=== PATIENT | female | born 1945 | race Caucasian/White ===

== ENCOUNTER → 2019-07-02 09:00 | Outpatient (CLI) | payer MEDICARE, OTHER, SELFPAY | PROVIDERS: Visit Provider Nurse Practitioner Family | DX: Z00.00 Encounter for general adult medical examination without abnormal findings (principal) | CPT/HCPCS: 36415; 82955; 83880; 84436; 84443; 84480 ==

== ENCOUNTER → 2019-07-03 10:47 | Outpatient (CLI) | payer MEDICARE, OTHER, SELFPAY ==
[2019-07-03 12:21] LABS: BNP,B-Type NATRIURETIC PEPTIDE 150.6 pg/mL (0-100)
[2019-07-03 12:24] LABS: T3 Total - Triiodothyronine 1.18 ng/mL (0.6-1.81)
[2019-07-03 12:25] LABS: T4 Total, Thyroxin 9.7 ug/dL (4.8-13.9); Thyroid Stim Hormone (TSH) 2.02 uIU/mL (0.358-3.74)
[2019-07-05 16:07] LABS: Red Blood Cell Count Test/G6PD 4.53 x10E6/uL (3.77-5.28)
[2019-07-06 13:58] LABS: G6PD Quant Test 280 (146-376)
== END ==
PROVIDERS: PCP Nurse Practitioner Family; Visit Provider Nurse Practitioner Family
DX: R53.82 Chronic fatigue, unspecified (principal); M62.81 Muscle weakness (generalized); R68.82 Decreased libido; E66.9 Obesity, unspecified
CPT/HCPCS: 36415; 82955; 83880; 84436; 84443; 84480

== ENCOUNTER 2021-09-19 10:12 | Outpatient (CLI) | payer MEDICARE, OTHER, SELFPAY ==
[2021-09-19 12:42] LABS: Absolute Lymphocyte Count 1.46 X10^3/uL (0.83-4.51); Absolute Neutrophil Count 5.6 X10^3/uL (2.0-7.7); Basophil# 0.04 X10^3/uL; Basophil% 0.5 % (0-1); Eosinophil# 0.09 X10^3/uL; Eosinophils% 1.2 % (0-5); Hematocrit 43.5 % (37-47); Lymphocyte # 1.46 X10^3/ul (0.83-4.51); Mean Corp Hgb Conc 32.2 g/dL (32-36); Mean Corpuscular Hgb 30.5 pg (27.0-32.0); Mean Corpuscular Volume 94.8 fL (81-99); Monocyte# 0.52 X10^3/uL; Monocyte% 6.8 % (0-10); NRBC Flagged by Analyzer 0 % (0-5); Neutrophil # 5.57 X10^3/uL (2.7-7.7); Neutrophil % 72.4 % (47-70); Platelet Count 412 K/mm3 (150-450); RBC Distribution Width CV 13.6 % (11.6-14.6); RBC Distribution Width SD 47.5 fl (35.1-43.9); Red Blood Count 4.59 M/mm3 (4.2-5.4); White Blood Count 7.7 K/mm3 (4.4-11.0)
[2021-09-19 12:44] LABS: Color, Urine Yellow (Yellow); Glucose, Dipstick Normal (Normal); Ketone-Dipstick 5 mg/dl (Negative); Leukocyte Esterase-Dipstick 25 /ul (Negative); Nitrite-Dipstick Positive (Negative); Occult Blood-Urine 25 /ul (Negative); Protein-Dipstick Negative (Negative); Urine Bilirubin Dipstick Negative (Negative); Urine Clarity Sl. Cloudy (Clear); Urine Urobilinogen Normal (Normal)
[2021-09-19 12:56] LABS: ALB/GLOB Ratio 0.8 RATIO (0.9-2.4); AST(SGOT) 19 U/L (15-37); Alanine Aminotransfer ALT/SGPT 14 U/L (13-56); Albumin, Serum 3.1 g/dL (3.2-5.0); Alkaline Phosphatase 98 U/L (45-117); Anion Gap 7 (5-15); BUN 21 mg/dL (7-18); BUN/Creat Ratio 35.8 RATIO (10-20); Calcium,Total 8.8 mg/dL (8.5-10.1); Chloride 109 mmol/L (98-107); Cholesterol 171 mg/dL (200); Creatinine, Serum 0.59 mg/dL (0.55-1.02); EST Glomerular Filtration Rate 105 mL/min (>60); Est Glom Filt Rate - Afr Amer 127 mL/min (>60); Globulin 3.7 g/dL (2.2-4.2); Glucose 91 mg/dL (74-106); High Density Lipoprotein 42 mg/dL; Potassium 4.4 mmol/L (3.5-5.1); Protein, Total 6.8 g/dL (6.4-8.2); Sodium Level 142 mmol/L (136-145); Triglycerides 71 mg/dL; Very Low Density Lipoprotein 14 mg/dL (5-40)
[2021-09-20 15:07] LABS: Red Blood Cell Count Test/G6PD 4.73 x10E6/uL (3.77-5.28)
[2021-09-22 14:22] LABS: G6PD Quant Test 365 (127-427)
== END 2021-09-19 23:59 | disposition home or self-care (01) ==
PROVIDERS: PCP Nurse Practitioner Family; Referring Provider Nurse Practitioner Family; Visit Provider Nurse Practitioner Family
DX: R53.82 Chronic fatigue, unspecified (principal); M62.81 Muscle weakness (generalized)
CPT/HCPCS: 36415; 80053; 80061; 81002; 82955; 83880; 85025

== ENCOUNTER → 2022-04-04 | Outpatient (CLI) | payer MEDICARE, OTHER, SELFPAY ==
--- NOTE | 2022-04-04 08:27 | BI_ITS ---
MAMMOGRAPHY - BILATERAL SCREENING REASON FOR EXAM: Female, 77 years old. Routine annual screening examination. PERTINENT HISTORY: Personal history of breast cancer. Prior right lumpectomy. Sister with breast cancer. Mother with breast cancer. Aunt with breast cancer. TECHNIQUE: Digital bilateral breast apollo (3D mammographic acquisition) in the CC and MLO projections. 2-D mediolateral oblique (MLO) and craniocaudad (CC) views of both breasts were obtained. CAD: Full Field Digital Mammography with Computer Added Detection was performed. COMPARISON: Comparison is made with prior abdomen examination dated 03/21/2021. FINDINGS: Breast Composition: The breasts are heterogeneously dense, which may obscure small masses. There are no dominant masses or suspicious calcifications. The patient is status post lumpectomy in the right breast with surgical clips seen in the right axillary region. No other significant abnormalities are identified. There has been no significant change since the prior study. BI/SCRN MAMM (CAD)W/APOLLO BILAT IMPRESSION: Stable bilateral screening mammogram. Yearly follow-up mammogram recommended. (A) ASSESSMENT CATEGORY: BIRADS Category 2: Benign. A letter regarding these results will be sent to the patient by the facility within 30 days. Approximately 10% of breast cancers are not detected by mammography. A normal mammogram should not delay biopsy of a clinically suspicious abnormality. [id number] Electronically Signed: aJck Rodriguez MD at 12:26 EST ,
== END | disposition home or self-care (01) ==
LOC: OPBI 08:26
PROVIDERS: Referring Provider Registered Nurse; Visit Provider Registered Nurse
DX: Z12.31 Encounter for screening mammogram for malignant neoplasm of breast (principal); Z80.3 Family history of malignant neoplasm of breast
CPT/HCPCS: 77063; 77067

== ENCOUNTER 2022-05-22 08:39 | Day surgery (SDC) | payer MEDICARE, OTHER, SELFPAY ==
--- NOTE | 2022-05-22 08:50 | HP.PCM_ITS ---
HPI - General General Date of Admission: 05/22/22 HPI Narrative JELANI SEARS, is a 77 F who presents for colonoscopy and an EGD. Patient denies any abdominal pain nausea vomiting or reflux. Patient has a bowel movements daily denies any blood. from office visit 04/03/22 HPI: 77-year-old female presents due to history of colon polyps for colonoscopy.? Patient states her last colonoscopy was about 5 to 6 years ago in [place], she did have a polyp at that time.? Patient denies any immediate family history of colon cancer however all of her paternal uncles and aunts did have colon cancer.? Patient has bowel movements daily denies any blood.? Patient denies any abdominal pain.? Patient states she also previously had an EGD about 5 to 6 years ago states she was told she did not have celiac disease thyroid time for that she was told she did.? Patient has been avoiding gluten as she is unable to tolerate it and patient is also lactose intolerant. [facility] Medical History (Updated 05/18/22 @ 13:29 by Oneyda Reza) History of celiac disease Hx of colonic polyps Non-smoker Wears glasses Home Medications cholecalciferol (vitamin D3) 100 mcg (4,000 unit) tablet 100 mcg PO DAILY 04/03/22 [History Last Taken Unknown] calcium carbonate 500 mg calcium (1,250 mg) chewable tablet (Calcium 500) 500 mg PO DAILY 04/13/22 [History Last Taken Unknown] clobetasol 0.05 % topical ointment 1 applic topical .COMPLEX #15 grams 04/13/22 [Rx Last Taken Unknown] ascorbic acid (vitamin C) 1,000 mg capsule,extended release 1 cap PO DAILY 05/18/22 [History Last Taken Unknown] Allergy/AdvReac Type Severity Reaction Status Date / Time No Known Allergies Allergy Unverified 05/22/22 09:19 Family History Mother Breast cancer Sister Breast cancer Brother Heart disease Hypertension Surgical History (Updated 05/18/22 @ 13:29 by Oneyda Reza) H/O breast biopsy H/O lumpectomy H/O: hysterectomy Hx of colonoscopy Hx of esophagogastroduodenoscopy Hx of lumbar discectomy Social History housing: house current occupational status: retired Smoking Status: Never smoker alcohol intake: never substance use type: does not use seatbelt use: always do you feel safe at home: Yes additional social history: Past Medical/Surgical History Planned Operation Planned Operative Procedure/s: EGD/CSCOPE Previous Hospitalizations/Surgeries HX Hospitalizations: No Any Problems With Anesthesia: No You/Your Family Experience Fever (Hyperthermia) With Anes: No Cholinesterase deficiency: No Cardiovascular Hx Hypertension: No Respiratory Hx Sleep Apnea: No Hx Respiratory Tract Infection/Cold (presently): No Do You Snore Loudly (louder than talking or can be heard): No Do You Often Feel Tired/ Fatigued/ Sleepy Dring Daytime?: No Has Anyone Observed You Stop Breathing During Sleep?: No Result (for STOP score): Negative Smoking Status: Never smoker Neurological Does patient have nerve stimulator: No Reproduction : No Allergies No Known Allergies Allergy (Unverified 05/22/22 09:19) Discharge Is Pt Admitted From a Intermediate, or a Nursing Home: No After D/C, Where Do you Plan to Go: Return Home Physical Exam Const alert, oriented x3 and no apparent distress HEENT normocephalic and head/scalp atraumatic Resp normal respiratory effort Cardio regular rate GI soft to palpation and non-tender; Negative for non-distended Palpation: Negative for guarding Extremity no clubbing, cyanosis or edema Neuro CN's II-XII intact bilaterally Psych mental status grossly normal Assessment & Plan Assessment/Plan (1) History of celiac disease: (2) Hx of colonic polyps: PLAN: Plan Discussed with patient plan to do a biopsy for celiac disease per patient. Surgery Risks - Colonoscopy Risks Include but are not Limited To: Risks include but are not limited to: Bleeding, perforation requiring further surgery, inability to complete colonoscopy requiring barium enema.
[2022-05-22 09:20] VITALS: PULSE 61; RESP 19; TEMP 36.4; O2SAT 97; BMI 30.7
[2022-05-22] MEDS: Lactated Ringers 1,000 ML 15 ML IV (09:20)
[2022-05-22 09:24] VITALS: BP 158/80
--- NOTE | 2022-05-22 10:00 | IMM_PTH ---
PATIENT: JELANI SEARS LOC: EN U#:[id number] AGE/SX: 77/F ROOM: RE05/22/[address]: Dr. Lu Toro MD : 1945 BED: DIS: 05/22/2022 SPEC #: [id number] RECD: 05/22/22 13:31 STATUS: PAULINE REGisselle #: [id number] SHANIKA: 05/22/22 10:[address]: Lu Toro DEPT: IMMUNOHISTOCHEMISTRY RECD BY: Marlen Meadows ENTERED: 05/22/22 13:31 SP TYPE: IMMUNO OTHR DR: No Primary Care Phys Tissues: B - Stomach, NOS Procedures: H Pylori (initial) PHYSICIAN & INSTITUTION [place] [id number] SPECIMEN INFORMATION: Tissue Source: B ? Gastric antrum Clinical Info: History of celiac disease and colonic polyps Specimen Number: [id number] CPT code: 86665 METHODOLOGY: Deparaffinized sections of prefer/formalin-fixed tissue or PAP/DQ stained slides are incubated with monoclonal/polyclonal antibodies/oligonucleotide probes. Localization is made via biotin free immunoperoxidase method. Appropriate controls are performed and reacted as expected. Results on target cell population are indicated in the following table: RESULTS: ANTIBODY / CLONE RESULT Block B H Pylori (polyclonal) negative These tests were developed and their performance characteristics determined by [facility]. They may not have been cleared or approved by the U.S. Food and Drug Administration. The FDA has determined that such clearance or approval is not necessary. The above immunohistochemical/dualISH markers are ordered and reviewed by the Pathologist. INTERPRETATION: B. Gastric antrum, biopsy: Negative for Helicobacter pylori organisms. AM:marlene 05/23/2022
--- NOTE | 2022-05-22 10:00 | EGD_PTH ---
PATIENT: JELANI SEARS LOC: EN U#:[id number] AGE/SX: 77/F ROOM: RE05/22/[address]: Dr. Lu Toro MD : 1945 BED: DIS: 05/22/2022 SPEC #: [id number] RECD: 05/22/22 11:04 STATUS: PAULINE MARIA DOLORES #: [id number] SHANIKA: 05/22/22 10:[address]: Lu Toro DEPT: SURGICAL PATHOLOGY RECD BY: Gretel Mcdonald ENTERED: 05/22/22 12:40 SP TYPE: EGD BIOPSY OTHR DR: Jade Primary Care Phys Tissues: A - Duodenum, NOS B - Gastric mucous membrane C - Gastric mucous membrane D - Esophagus, NOS E - Ascending colon Procedures: Special Stain Group II Surgery Specimen Level IV Alcian Blue/PAS (control) HEADER OPERATION: Colonoscopy, EGD ([facility] [place]), biopsy PRE-OP DIAGNOSIS: History of celiac disease and colonic polyps TISSUE SUBMITTED: A - Duodenum biopsy, rule out celiac, B - Gastric antrum biopsy, histo, H. pylori, C - Gastroesophageal junction biopsy, D - Proximal esophagus biopsy, E - Polyp ascending colon biopsy MICROSCOPIC DIAGNOSIS A. Duodenum, biopsy: Chronic duodenitis with stool-like epithelial change. B. Gastric antrum, biopsy: Mild chronic gastritis. See comment. C. Gastroesophageal junction, biopsy: Mild chronic inflammation. Focal changes of reflux. No evidence of goblet cell metaplasia. See comment. D. Proximal esophagus biopsy: Fragment of gastric mucosa with mild chronic inflammation. E. Ascending colon polyp, biopsy: Tubular adenoma. AM:marlene 05/23/2022 COMMENT B. The results of immunohistochemistry for Helicobacter pylori will be reported separately ([id number]). C. Alcian blue/PAS stain with matched control supports the above diagnosis. MICROSCOPIC DESCRIPTION Slides are reviewed. GROSS DESCRIPTION A - Received in fixative is one container labeled with the patient's name and designated duodenum biopsy. The specimen consists of one irregular fragment of light glez soft tissue that measures 0.5 x 0.5 x 0.1 cm. The specimen is totally submitted in one cassette. B - Received in fixative is one container labeled with the patient's name and designated gastric antrum biopsy. The specimen consists of one irregular fragment of light glez soft tissue that measures 0.6 x 0.3 x 0.1 cm. The specimen is totally submitted in one cassette. C - Received in fixative is one container labeled with the patient's name and designated GE junction biopsy. The specimen consists of multiple irregular fragments of light glez soft tissue that in aggregate measure 1.0 x 0.2 x 0.1 cm. The specimen is totally submitted in one cassette. D - Received in fixative is one container labeled with the patient's name and designated proximal esophagus. The specimen consists of one irregular fragment of light glez soft tissue that measures 0.5 x 0.2 x 0.1 cm. The specimen is totally submitted in one cassette. E - Received in fixative is one container labeled with the patient's name and designated ascending colon polyp. The specimen consists of multiple irregular fragments of light glez soft tissue that in aggregate measure 0.7 x 0.7 x 0.1 cm. The specimen is totally submitted in one cassette. / AM:marlene 05/22/2022 TC:3 CPT: 25353 x5, 42173
--- NOTE | 2022-05-22 10:00 | EGD_PTH ---
PATIENT: JELANI SEARS LOC: EN U#:[id number] AGE/SX: 77/F ROOM: RE05/22/[address]: Dr. Lu Toro MD : 1945 BED: DIS: 05/22/2022 SPEC #: [id number] RECD: 05/22/22 11:04 STATUS: PAULINE MARIA DOLORES #: [id number] SHANIKA: 05/22/22 10:[address]: Lu Toro DEPT: SURGICAL PATHOLOGY RECD BY: Gretel Mcdonald ENTERED: 05/22/22 12:40 SP TYPE: EGD BIOPSY OTHR DR: Jade Primary Care Phys Tissues: A - Duodenum, NOS B - Gastric mucous membrane C - Gastric mucous membrane D - Esophagus, NOS E - Ascending colon Procedures: Special Stain Group II Surgery Specimen Level IV Alcian Blue/PAS (control) HEADER OPERATION: Colonoscopy, EGD ([facility] [place]), biopsy PRE-OP DIAGNOSIS: History of celiac disease and colonic polyps TISSUE SUBMITTED: A - Duodenum biopsy, rule out celiac, B - Gastric antrum biopsy, histo, H. pylori, C - Gastroesophageal junction biopsy, D - Proximal esophagus biopsy, E - Polyp ascending colon biopsy MICROSCOPIC DIAGNOSIS A. Duodenum, biopsy: Chronic duodenitis with sprue-like epithelial change. B. Gastric antrum, biopsy: Mild chronic gastritis. See comment. C. Gastroesophageal junction, biopsy: Mild chronic inflammation. Focal changes of reflux. No evidence of goblet cell metaplasia. See comment. D. Proximal esophagus biopsy: Fragment of gastric mucosa with mild chronic inflammation. E. Ascending colon polyp, biopsy: Tubular adenoma. AM:marlene 05/23/2022 COMMENT B. The results of immunohistochemistry for Helicobacter pylori will be reported separately ([id number]). C. Alcian blue/PAS stain with matched control supports the above diagnosis. MICROSCOPIC DESCRIPTION Slides are reviewed. GROSS DESCRIPTION A - Received in fixative is one container labeled with the patient's name and designated duodenum biopsy. The specimen consists of one irregular fragment of light glez soft tissue that measures 0.5 x 0.5 x 0.1 cm. The specimen is totally submitted in one cassette. B - Received in fixative is one container labeled with the patient's name and designated gastric antrum biopsy. The specimen consists of one irregular fragment of light glez soft tissue that measures 0.6 x 0.3 x 0.1 cm. The specimen is totally submitted in one cassette. C - Received in fixative is one container labeled with the patient's name and designated GE junction biopsy. The specimen consists of multiple irregular fragments of light glez soft tissue that in aggregate measure 1.0 x 0.2 x 0.1 cm. The specimen is totally submitted in one cassette. D - Received in fixative is one container labeled with the patient's name and designated proximal esophagus. The specimen consists of one irregular fragment of light glez soft tissue that measures 0.5 x 0.2 x 0.1 cm. The specimen is totally submitted in one cassette. E - Received in fixative is one container labeled with the patient's name and designated ascending colon polyp. The specimen consists of multiple irregular fragments of light glez soft tissue that in aggregate measure 0.7 x 0.7 x 0.1 cm. The specimen is totally submitted in one cassette. / AM:marlene 05/22/2022 TC:3 CPT: 96495 x5, 86691
[2022-05-22 10:15] VITALS: BP 124/70; BP 124/78; BP 158/80; PULSE 62; PULSE 65; RESP 12; TEMP 36.1; O2SAT 95
[2022-05-22 10:20] VITALS: BP 122/74; BP 158/80; PULSE 68; RESP 14; O2SAT 95
--- NOTE | 2022-05-22 10:20 | OP.EGD_ITS ---
Patient Name: Radha Pineda Procedure Date: 05/22/2022 9:26 AM Date of : 1945 Age: 77 Procedure: Upper GI endoscopy Indications: Follow-up of celiac disease Providers: Lu Toro MD Medicines: Monitored Anesthesia Care Patient Profile: This is a 77 year old female. Complications: No immediate complications. Procedure: Pre-Anesthesia Assessment: - Prior to the procedure, a History and Physical was performed, and patient medications and allergies were reviewed. The patient's tolerance of previous anesthesia was also reviewed. The risks and benefits of the procedure and the sedation options and risks were discussed with the patient. All questions were answered, and informed consent was obtained. Prior Anticoagulants: The patient has taken no previous anticoagulant or antiplatelet agents. ASA Grade Assessment: Per anesthesia. After reviewing the risks and benefits, the patient was deemed in satisfactory condition to undergo the procedure. After obtaining informed consent, the endoscope was passed under direct vision. Throughout the procedure, the patient's blood pressure, pulse, and oxygen saturations were monitored continuously. The colonoscope was introduced through the mouth, and advanced to the second part of duodenum. The upper GI endoscopy was accomplished without difficulty. The patient tolerated the procedure well. Scope In: 9:39:22 AM Scope Out: 9:48:28 AM Total Procedure Duration Time 0 hours 9 minutes 6 seconds Findings: The Z-line was irregular and was found 40 cm from the incisors. Biopsies were taken with a cold forceps for histology. The examined duodenum was normal. Biopsies for histology were taken with a cold forceps for evaluation of celiac disease. Striped moderately erythematous mucosa without bleeding was found in the gastric antrum. Biopsies were taken with a cold forceps for histology. Biopsies were taken with a cold forceps for Helicobacter pylori testing. The cardia and gastric fundus were normal on retroflexion. Localized mucosal changes characterized by discoloration were found in the proximal esophagus. Biopsies were taken with a cold forceps for histology. Impression: - Z-line irregular, 40 cm from the incisors. Biopsied. - Normal examined duodenum. Biopsied. - Erythematous mucosa in the antrum. Biopsied. - Discolored mucosa in the esophagus. Biopsied. Recommendation: - Discharge patient to home. - Resume previous diet. - Use Protonix (pantoprazole) 40 mg PO daily. - Use sucralfate tablets 1 gram PO QID for 1 week. - Continue present medications. Procedure Code(s): --- Professional --- 22854, Esophagogastroduodenoscopy, flexible, transoral; with biopsy, single or multiple Diagnosis Code(s): --- Professional --- K22.8, Other specified diseases of esophagus K31.89, Other diseases of stomach and duodenum K90.0, Celiac disease CPT copyright 2017 [employer]. All rights reserved. The codes documented in this report are preliminary and upon chrome tanner review may be revised to meet current compliance requirements. MD Lu Castro MD 05/22/2022 10:19:39 AM This report has been signed electronically. Number of Addenda: 0 Note Initiated On: 05/22/2022 9:26 AM
[2022-05-22 10:25] VITALS: BP 140/81; BP 158/80; PULSE 61; RESP 14; TEMP 36.1; O2SAT 98
--- NOTE | 2022-05-22 10:26 | OP.COLON_ITS ---
Patient Name: Radha Pineda Procedure Date: 05/22/2022 9:48 AM Date of : 1945 Age: 77 Procedure: Colonoscopy Indications: High risk colon cancer surveillance: Personal history of colonic polyps Providers: Lu Toro MD Medicines: Monitored Anesthesia Care Patient Profile: This is a 77 year old female. Last Colonoscopy: 5 years ago. Complications: No immediate complications. Procedure: Pre-Anesthesia Assessment: - Prior to the procedure, a History and Physical was performed, and patient medications and allergies were reviewed. The patient's tolerance of previous anesthesia was also reviewed. The risks and benefits of the procedure and the sedation options and risks were discussed with the patient. All questions were answered, and informed consent was obtained. Prior Anticoagulants: The patient has taken no previous anticoagulant or antiplatelet agents. ASA Grade Assessment: Per anesthesia. After reviewing the risks and benefits, the patient was deemed in satisfactory condition to undergo the procedure. After I obtained informed consent, the scope was passed under direct vision. Throughout the procedure, the patient's blood pressure, pulse, and oxygen saturations were monitored continuously. The colonoscope was introduced through the anus and advanced to the cecum, identified by appendiceal orifice and ileocecal valve. The colonoscopy was performed without difficulty. The patient tolerated the procedure well. The quality of the bowel preparation was good. Scope In: 9:49:24 AM Scope Withdrawal Time 0 hours 9 minutes 10 seconds Scope Out: 10:08:49 AM Total Procedure Duration Time 0 hours 19 minutes 25 seconds Findings: The perianal and digital rectal examinations were normal. A less than 5 mm polyp was found in the ascending colon. The polyp was sessile. The polyp was removed with a cold biopsy forceps. Resection and retrieval were complete. A single small-mouthed diverticulum was found in the ascending colon. The exam was otherwise without abnormality on direct and retroflexion views. Impression: - One less than 5 mm polyp in the ascending colon, removed with a cold biopsy forceps. Resected and retrieved. - Diverticulosis in the ascending colon. - The examination was otherwise normal on direct and retroflexion views. Recommendation: - Discharge patient to home. - Resume previous diet. - Continue present medications. - Await pathology results. - Repeat colonoscopy in 5 years for surveillance based on pathology results. Procedure Code(s): --- Professional --- 70903, PT, Colonoscopy, flexible; with biopsy, single or multiple Diagnosis Code(s): --- Professional --- Z86.010, Personal history of colonic polyps D12.2, Benign neoplasm of ascending colon K57.30, Diverticulosis of large intestine without perforation or abscess without bleeding CPT copyright 2017 [employer]. All rights reserved. The codes documented in this report are preliminary and upon weight trainer review may be revised to meet current compliance requirements. MD Lu Castro MD 05/22/2022 10:25:18 AM This report has been signed electronically. Number of Addenda: 0 Note Initiated On: 05/22/2022 9:48 AM
[2022-05-22 10:51] VITALS: BP 158/80
== END 2022-05-22 10:52 | disposition home or self-care (01) ==
LOC: EN 08:41 → AC 08:43
PROVIDERS: Visit Provider Surgery
PROC: 0DJD8ZZ Inspection of Lower Intestinal Tract, Via Natural or Artificial Opening Endoscopic (ICD-10-PCS; CPT 45378; principal; 2022-05-22 09:55)
DX: Z12.11 Encounter for screening for malignant neoplasm of colon (principal); K57.30 Diverticulosis of large intestine without perforation or abscess without bleeding; K90.0 Celiac disease; Z86.010 Personal history of colon polyps; Z80.0 Family history of malignant neoplasm of digestive organs; K31.89 Other diseases of stomach and duodenum; K22.89 Other specified disease of esophagus; D12.2 Benign neoplasm of ascending colon; K29.50 Unspecified chronic gastritis without bleeding; K29.80 Duodenitis without bleeding
CPT/HCPCS: 43239; 45380; 88305; 88313; 88342; J7120; J2405

== ENCOUNTER → 2023-04-25 | Outpatient (CLI) | payer MEDICARE, OTHER, SELFPAY ==
--- NOTE | 2023-04-25 14:25 | RAD_ITS ---
INDICATION: Cough, Congestion EXAMINATION/TECHNIQUE: X-RAY - XR Chest 2 Views COMPARISON: Prior study dated: 06/18/2004. FINDINGS: LINES/DEVICES: None. LUNGS: No consolidation, edema or effusion. No pneumothorax. MEDIASTINUM AND CARDIOVASCULAR STRUCTURES: Cardiac silhouette not enlarged. Central airways and mediastinal contour are unremarkable. BONES AND SOFT TISSUES: Surgical clips in the right axilla new since previous exam. No demonstrated acute osseous changes. RAD/Chest PA and Lateral IMPRESSION: No radiographic evidence of acute cardiopulmonary disease. Electronically Signed: Waldemar Reynolds MD at 15:01 EST ,
[2023-04-25 15:08] LABS: Absolute Lymphocyte Count 1.68 X10^3/uL (0.83-4.51); Absolute Neutrophil Count 3.5 X10^3/uL (2.0-7.7); Basophil# 0.05 X10^3/uL; Basophil% 0.8 % (0-1); Eosinophil# 0.16 X10^3/uL; Eosinophils% 2.6 % (0-5); Hematocrit 45.8 % (37-47); Hemoglobin 14.9 g/dL (12.0-15.0); Lymphocyte # 1.68 X10^3/ul (0.83-4.51); Lymphocyte % 27.5 % (19-41); Mean Corp Hgb Conc 32.5 g/dL (32-36); Mean Corpuscular Hgb 30.4 pg (27.0-32.0); Mean Corpuscular Volume 93.5 fL (81-99); Mean Platelet Vol. 9.2 fl (6.2-12.0); Monocyte% 11.5 % (0-10); NRBC Flagged by Analyzer 0 % (0-5); Neutrophil % 57.4 % (47-70); Platelet Count 457 K/mm3 (150-450); RBC Distribution Width CV 13.7 % (11.6-14.6); RBC Distribution Width SD 47.5 fl (35.1-43.9); White Blood Count 6.1 K/mm3 (4.4-11.0)
[2023-04-25 16:00] LABS: ALB/GLOB Ratio 0.9 RATIO (0.9-2.4); AST(SGOT) 29 U/L (15-37); Alanine Aminotransfer ALT/SGPT 18 U/L (13-56); Albumin, Serum 3.5 g/dL (3.2-5.0); Alkaline Phosphatase 108 U/L (45-117); Anion Gap 4 (5-15); BUN 11 mg/dL (7-18); BUN/Creat Ratio 15.6 RATIO (10-20); Calcium,Total 8.9 mg/dL (8.5-10.1); Chloride 109 mmol/L (98-107); Cholesterol 197 mg/dL (200); EST Glomerular Filtration Rate 85 mL/min (>60); Est Glom Filt Rate - Afr Amer 103 mL/min (>60); Globulin 3.8 g/dL (2.2-4.2); Glucose 91 mg/dL (74-106); High Density Lipoprotein 45 mg/dL; Protein, Total 7.3 g/dL (6.4-8.2); Sodium Level 141 mmol/L (136-145); Thyroid Stim Hormone (TSH) 1.57 uIU/mL (0.358-3.74); Triglycerides 74 mg/dL; Very Low Density Lipoprotein 15 mg/dL (5-40)
--- OUTSIDE RECORDS SUMMARY | 2023-04-25 18:10 | XMS RPT_ITS | CCD ---
Author Name Unknown Address [facility] [address] [place] [address] Organization [facility] Care Team Providers Care Land Developer Name Role Phone Mckinley Que UdDin Primary Care Provider [phone] Medications Current Medications Medication Drug Class(es) Dates Sig (Normalized) Sig (Original) valACYclovir 1000 mg oral tablet (2 sources) Herpesvirus Nucleoside Analog DNA Polymerase Inhibitor, Herpes Simplex Virus Nucleoside Analog DNA Polymerase Inhibitor, Herpes Zoster Virus Nucleoside Analog DNA Polymerase Inhibitor Start: 09-21-2021 End: 10-01-2021 take 1 tablet by mouth twice daily valACYclovir (VALTREX) 1 gram Indications: Vulvar lesion Take 1 tablet by mouth twice daily for 10 days. 20 tablet 0 09/21/2021 10/01/2021 Active Problems Problem Classification Problem Date Documented Da te Episodic/Chronic Allergic reactions (1 source) Vulval eczema; Translations: [Dermatitis, unspecified] Episodic Genitourinary symptoms and ill-defined conditions (1 source) Urinary incontinence; Translations: [Unspecified urinary incontinence] Chronic Other female genital disorders (1 source) Lesion of vulva; Translations: [Other specified noninflammatory disorders of vulva and perineum] Episodic Results Test Name Value Interpretation Reference Range Facil ity Vital Signs Date Time Vital Sign Value Performing Clinician Faci lity 09-21-2021 07:29-0400 Body weight 85.28 kg Amparo Mendenhall APRN.CNP Work Phone: [facility] 09-21-2021 07:29-0400 Diastolic blood pressure 80 mm[Hg] Amparo Mendenhall APRN.CNP Work Phone: [facility] 09-21-2021 07:29-0400 Systolic blood pressure 138 mm[Hg] Amparo Mendenhall APRN.CNP Work Phone: [facility] Encounters Encounter Date Encounter Type Care Provider Facility Start: 09-27-2021 Telephone encounter Amparo nair APRN.CNP Work Phone: OB/Gynecology Plan of Treatment Date Care Activity Detail Author Start: 12-30-2023 DIABETES SCREEN DIABETES SCREEN [facility] Start: 11-03-2021 Influenza vaccination INFLUENZA (#1) [facility] Start: 09-21-2021 End: 11-21-2021 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 [facility] Work Phone: Payers Date Payer Category Payer Private Health Insurance [facility] AARP SUPPLEMENT [id number] 2021-Present [phone] [address] [place] [address] Indemnity [id number] 2008 Medicare MEDICARE MEDICAR E A AND B [id number] 2008-Present [phone] [address] [address] [place] [address] Medicare [id number] Social History Date Type Detail Facility Start: 09-21-2021 Tobacco smoking stat [email or web address]IS Never smoked tobacco [facility] Start: 09-21-2021 Tobacco use and exposure Smoke less tobacco non-user [facility] Start: 09-21-2021 Alcohol intake Ex-drinker (finding) [facility] Start: 1945 Sex Assigned At Not on file C [facility] Start: 09-11-2021 End: 09-21-2021 Exposure to SARS-CoV-2 (event) Not sure [facility] Note 09-27-2021 Telephone Encounter - Amparo Mendenhall APRN.CNP - 09/27/2021 3:35 PM EDTTelephone Encounter - Colette Arizmendi RN - 09/27/2021 1:08 PM EDTTelephone Encounter - Amparo Mendenhall APRN.CNP - 09/27/2021 12:28 PM EDT Note Date & Type Note Facility 09-27-2021 Miscellaneous Notes Noted. Amparo Mendenhall APRN.CNP Patient called back and was given results and instructions. Patient states that she is feeling better. Denies any burning. EVAN Please notify pt - The swab of the vaginal lesions was negative for the herpes virus. This may not be totally accurate because the lesions were scabbed over. The herpes IgM was equivocal, meaning it was neither negative nor positive. 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 Please obtain clinical update as to how her symptoms are doing with wearing incontinence pads instead of just changing clothing when wet. If symptoms continue she will need to make follow-up appointment - she may need vulvar biopsy as discussed at the OV. . Amparo Mendenhall APRN.CNP documented in this encounter [facility] Progress note 09-21-2021 Note Date & Type Note Facility 09-21-2021 Note HNO ID: [id number] Author: Amparo Mendenhall APRN.CNP Service: ? Author Type: Nurse Practitioner Type: Progress Notes Filed: 09/21/2021 8:53 AM Note Text: Radha Pineda is a 76 year old female who presents for problem visit Vaginal bumps. HPI: Vaginal bumps for at least a year, bumps recur in the same areas. Feels like she always has symptoms but sometimes worse than others. Has not looked at bumps. Bumps burn and itch - uses Vaseline to soothe symptoms. Does not have increased itching overnight. Has urine leakage but does not wear a pad because she thought maybe the pads were causing the symptoms. She changes clothing usually twice a day due to urine leakage. No history of genital warts, HSV. OB History No obstetric history on file. Can Technician History LMP: Postmenopausal Age at Menarche: Age at First : Age at Menopause: Can Technician History Comments: Sexual Activity: No sexual activity data on record; No partner data on record Contraception: Surgical No past medical history on file. PAST SURGICAL HISTORY Procedure Laterality Date - BREAST LUMPECTOMY HX - REMOVAL GALLBLADDER - TOTAL ABDOM HYSTERECTOMY No family history on file. Social History Tobacco Use - Smoking status: Never Smoker - Smokeless tobacco: Never Used Vaping Use - Vaping Use: Never used Substance Use Topics - Alcohol use: Not Currently - Drug use: Never No current outpatient medications on file. No current facility-administered medications for this visit. Allergies As of Date: 09/21/2021 (No Known Allergies) REVIEW OF SYSTEMS Bladder: long-term urinary incontinence - not aware of voiding Allergies and current medication updated:Yes EXAM: BP 138/80 Wt 188 lb (85.3kg) GENERAL: pleasant, female in no apparent distress CHEST: Normal inspiratory effort PELVIC: external genitalia - 2 tiny yellow ulcerations and edema to right labia minora and one linear open area to anterior vulva. Depigmented skin to entire vulva, perineum and nela-rectal area. Some agglutination to upper labia minora. No plaques. Normal Bartholin's glands, urethra, [place]'s glands, physiologic discharge present. Cervix surgically absent. NEURO: alert and oriented x3,exam grossly non-focal ASSESSMENT/PLAN: 1. 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 2. 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 Skin has hypopigmentation and some vulvar agglutination. Encouraged to use incontinence pads to pull urine away from skin. Continue with Vaseline to protect skin for now. Will discuss further after HSV results are reviewed. May need vulvar biopsy - discussed with pt. 3. Urinary incontinence, unspecified type - ICD9: 788.30, ICD10: R32 - See above. Will notify of results. Follow- up as needed. Amparo Mendenhall APRN.CNP Medical Decision Making: Problems: Moderate: 1+ chronic illnesses with change and 2+ stable chronic illnesses Data: Unique test(s) ordered: 3+ Risk: Moderate: Drug management Medical Decision Making Level: 4 - [facility]-21-2021 Patient Instructions Note Date & Type Note Facility 09-21-2021 Instructions Amparo Mendenhall APRN.YOSVANY - 09/21/2021 7:55 AM EDT Use incontinence pads only documented in this encounter [facility] History of Present illness Narrative 09-21-2021 Amparo Mendenhall APRN.YOSVANY - 09/21/2021 7:25 AM EDT Note Date & Type Note Facility 09-21-2021 History of Presen t illness Narrative Radha Pineda is a 76 year old female who presents for problem visit Vaginal bumps. HPI: Vaginal bumps for at least a year, bumps recur in the same areas. Feels like she always has symptoms but sometimes worse than others. Has not looked at bumps. Bumps burn and itch - uses Vaseline to soothe symptoms. Does not have increased itching overnight. Has urine leakage but does not wear a pad because she thought maybe the pads were causing the symptoms. She changes clothing usually twice a day due to urine leakage. No history of genital warts, HSV. OB History No obstetric history on file. Can Technician History LMP: Postmenopausal Age at Menarche: Age at First : Age at Menopause: Can Technician History Comments: Sexual Activity: No sexual activity data on record; No partner data on record Contraception: Surgical No past medical history on file. PAST SURGICAL HISTORY Procedure Laterality Date BREAST LUMPECTOMY HX REMOVAL GALLBLADDER TOTAL ABDOM HYSTERECTOMY No family history on file. Social History Tobacco Use Smoking status: Never Smoker Smokeless tobacco: Never Used Vaping Use Vaping Use: Never used Substance Use Topics Alcohol use: Not Currently Drug use: Never No current outpatient medications on file. No current facility-administered medications for this visit. Allergies As of Date: 09/21/2021 (No Known Allergies) REVIEW OF SYSTEMS Bladder: long-term urinary incontinence - not aware of voiding Allergies and current medication updated:Yes EXAM: BP 138/80 Wt 188 lb (85.3kg) GENERAL: pleasant, female in no apparent distress CHEST: Normal inspiratory effort PELVIC: external genitalia - 2 tiny yellow ulcerations and edema to right labia minora and one linear open area to anterior vulva. Depigmented skin to entire vulva, perineum and nela-rectal area. Some agglutination to upper labia minora. No plaques. Normal Bartholin's glands, urethra, [place]'s glands, physiologic discharge present. Cervix surgically absent. NEURO: alert and oriented x3,exam grossly non-focal ASSESSMENT/PLAN: 1. 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 2. 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 Skin has hypopigmentation and some vulvar agglutination. Encouraged to use incontinence pads to pull urine away from skin. Continue with Vaseline to protect skin for now. Will discuss further after HSV results are reviewed. May need vulvar biopsy - discussed with pt. 3. Urinary incontinence, unspecified type - ICD9: 788.30, ICD10: R32 - See above. Will notify of results. Follow- up as needed. Amparo Mendenhall APRN.CNP Medical Decision Making: Problems: Moderate: 1+ chronic illnesses with change and 2+ stable chronic illnesses Data: Unique test(s) ordered: 3+ Risk: Moderate: Drug management Medical Decision Making Level: 4 - Moderate documented in this encounter [facility] Evaluation note Note Date & Type Note Facility documented in this encounter [facility] Summary Purpose Family History No Family History Records Found Advance Directives No Advanced Directives Records Found Additional Source Comments Source Comments (unrecognize d section and content) In the event this informatio n is protected by the Federal Confidentiality of Alcohol and Drug Abuse Patient Records regulations: The Federal rules restrict any use of the information to criminally investigate or prosecute any alcohol or drug abuse patient.[facility] the event this information is protected by the Federal Confidentiality of Alcohol and Drug Abuse Patient Records regulations: The Federal rules restrict any use of the information to criminally investigate or prosecute any alcohol or drug abuse patient.[facility] Reason for Visit (unrecogniz ed section and content) Reason Comments Results Clinical Update Care Teams (unrecognized sec tion and content) Land Developer Relationship Specialty Start Date End Date Mckinley Que Ud-Din [address] [address] PCP - General 08/12/03 INFORMATION SOURCE (unrecogn ized section and content) FOR RECORDS PERTAINING TO PATIENTS WHO ARE OR HAVE BEEN ENROLLED IN A CHEMICAL DEPENDENCY/SUBSTANCEABUSE PROGRAM, SOME INFORMATION MAY BE OMITTED. This clinical summary was aggregated from multiple sources. Caution should be exercised in using it in the provision of clinical care. This summary normalizes information from multiple sources, and as a consequence, information in this document may materially change the coding, format and clinical context of patient data. In addition, data may be omitted in some cases. CLINICAL DECISIONS SHOULD BE BASED ON THE PRIMARY CLINICAL RECORDS. [facility]. provides no warranty or guarantee of the accuracy or completeness of information in this document.
== END | disposition home or self-care (01) ==
PROVIDERS: PCP Internal Medicine; Referring Provider Internal Medicine; Visit Provider Internal Medicine
DX: R05.9 Cough, unspecified (principal); R09.89 Other specified symptoms and signs involving the circulatory and respiratory systems; I10 Essential (primary) hypertension
CPT/HCPCS: 36415; 71046; 80053; 80061; 84439; 84443; 85025

== ENCOUNTER → 2023-05-07 | Outpatient (CLI) | payer MEDICARE, OTHER, SELFPAY ==
--- OUTSIDE RECORDS SUMMARY | 2023-05-07 19:45 | XMS RPT_ITS | CCD ---
Author Name Unknown Address [facility] [place] [address] Organization [facility] Care Team Providers Care Equities Analyst Name Role Phone Mckinley Que UdDin Primary Care Provider Medications Current Medications Medication Drug Class(es) Dates [...] 85.28 kg Amparo Mendenhall APRN.CNP Work Phone: [facility] 09-21-2021 07:29-0400 Diastolic blood pressure 80 mm[Hg] Amparo Mendenhall APRN.CNP Work Phone: [facility] 09-21-2021 07:29-0400 Systolic blood pressure 138 mm[Hg] Amparo Mendenhall APRN.CNP Work Phone: [facility] Encounters Encounter Date Encounter Type Care Provider Facility Start: 09-27-2021 Telephone encounter Amparo nair APRN.CNP Work Phone: OB/Gynecology Plan of Treatment Date Care Activity Detail Author Start: 12-30-2023 DIABETES SCREEN DIABETES SCREEN [facility] Start: 11-03-2021 Influenza vaccination INFLUENZA (#1) 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 [facility] Work Phone: Payers Date Payer Category Payer Private Health Insurance [facility] AARP SUPPLEMENT [id number] 2021-Present [phone] [address] [place] [address] Indemnity [id number] 2008 Medicare MEDICARE MEDICAR E A AND B [id number] 2008-Present [phone] [address] [address] [place] [address] Medicare [id number] Social History Date Type Detail Facility Start: [facility]21[facility]21 [facility] Start: 09-21-2021 Tobacco use and exposure Smoke less tobacco non-user [facility] Start: 09-21-2021 Alcohol intake Ex-drinker (finding) [facility] Start: 1945 Sex Assigned At Not on file C [facility] Start: 09-11-2021 End: 09-21-2021 Exposure to SARS-CoV-2 (event) Not sure [facility] Note 09-27-2021 Telephone Encounter - Amparo [...] Amparo Mendenhall APRN.CNP documented in this encounter [facility] Progress note 09-21-2021 Note Date & Type Note Facility 09-21-2021 Note HNO ID: [id number] Author: Amparo Mendenhall APRN.CNP Service: ? Author [...] OB History No obstetric history on file. Grain Commodity Manager History LMP: Postmenopausal Age at Menarche: Age at First : Age at Menopause: Grain Commodity Manager History Comments: Sexual Activity: No sexual activity [...] minora. No plaques. Normal Bartholin's glands, urethra, [place]'s glands, physiologic discharge present. Cervix surgically absent. [...] Medical Decision Making Level: 4 - Moderate [facility] 09-21-2021 Patient Instructions Note Date & Type Note Facility 09-21-2021 Instructions Amparo Mendenhall APRN.YOSVANY - 09/21/2021 7:55 AM EDT Use incontinence pads only documented in this encounter [facility] History of Present illness Narrative 09-21-2021 [...] OB History No obstetric history on file. Grain Commodity Manager History LMP: Postmenopausal Age at Menarche: Age at First : Age at Menopause: Grain Commodity Manager History Comments: Sexual Activity: No sexual activity [...] minora. No plaques. Normal Bartholin's glands, urethra, [place]'s glands, physiologic discharge present. Cervix surgically absent. [...] 4 - Moderate documented in this encounter [facility] Evaluation note Note Date & Type Note Facility documented in this encounter [facility] Summary Purpose Family History No Family [...] or prosecute any alcohol or drug abuse patient.[facility] the event this information is protected by the Federal Confidentiality of Alcohol and Drug Abuse Patient Records regulations: The Federal rules restrict any use of the information to criminally investigate or prosecute any alcohol or drug abuse patient.[facility] Reason for Visit (unrecogniz ed section and content) Reason Comments Results Clinical Update Care Teams (unrecognized sec tion and content) Equities Analyst Relationship Specialty Start Date End Date Mckinley Que Ud-Din [address] [id number] PCP - General 08/12/03 INFORMATION [...] BE BASED ON THE PRIMARY CLINICAL RECORDS. [facility]. provides no warranty or guarantee of the accuracy or completeness of information in this document.
== END | disposition home or self-care (01) ==
LOC: LABSPEC 16:00
PROVIDERS: PCP Internal Medicine; Visit Provider Nurse Practitioner
DX: R09.89 Other specified symptoms and signs involving the circulatory and respiratory systems (principal)
CPT/HCPCS: 87631

== ENCOUNTER → 2023-05-09 | Outpatient (CLI) | payer MEDICARE, OTHER, SELFPAY ==
--- NOTE | 2023-05-09 12:16 | BI_ITS ---
MAMMOGRAPHY - BILATERAL SCREENING 3-D TOMOSYNTHESIS REASON FOR EXAM: Female, 78 years old. SCREENING PERTINENT HISTORY: No significant family history. TECHNIQUE: 2-D mammograms and 3-D Tomosynthesis of the breast (s) were performed. CAD was performed. COMPARISON: 04/04/2022 FINDINGS: The breast composition is heterogeneously dense that can obscure small breast masses. Scattered benign calcifications are seen. No dense spiculated masses or suspicious microcalcifications are identified. No architectural distortion is identified. There is no skin thickening or retraction. There has been no significant change since the prior study. BI/SCRN MAMM (CAD)W/APOLLO BILAT IMPRESSION: No mammographic signs of malignancy. Routine yearly mammograms recommended. ASSESSMENT CATEGORY: BIRADS Category 1: Negative. A letter regarding these results will be sent to the patient by the facility within 30 days. FOLLOW UP RECOMMENDATION: Yearly follow up mammogram recommended. (A) Approximately 10% of breast cancers are not detected by mammography. A normal mammogram should not delay biopsy of a clinically suspicious abnormality. Electronically Signed: Hamzah Estes MD at 19:28 EST ,
--- NOTE | 2023-05-09 12:47 | CT_ITS ---
INDICATION: headache EXAMINATION: CT BRAIN - CT Head or Brain W/O Contrast Injection TECHNIQUE: Multiple axial images were obtained of the head without intravenous contrast. A radiation dose optimization technique was used for this scan. IV Contrast dosage and agent: None. RADIATION DOSAGE (If Supplied By Facility): CTDIvol = ( 44.99 ) mGy, DLP = ( 812.98 ) mGycm COMPARISON: No relevant prior comparison study available FINDINGS: BRAIN PARENCHYMA: No intra- or extra-axial hemorrhage. No evidence of acute infarct. No intracranial mass or mass effect. There is preservation of the simpson/white matter interface. Mild periventricular deep white matter changes likely due to chronic microvascular disease. Posterior fossa structures are unremarkable. CSF SPACES: Appropriate for age. No hydrocephalus. Basal cisterns are patent. CALVARIUM, SKULL BASE, PARANASAL SINUSES AND MASTOID AIR CELLS: Mucosal thickening of the left maxillary sinus. No discrete lytic or blastic abnormalities. ORBITS: There is bilateral cataract surgery. Small calcifications in the posterior globes bilaterally. CT/Brain/Head without Contrast IMPRESSION: No acute intracranial process. Mild sinus disease. Electronically Signed: Waldemar Reynolds MD at 14:57 EST ,
--- OUTSIDE RECORDS SUMMARY | 2023-05-09 13:17 | XMS RPT_ITS | CCD ---
Author Name Unknown Address [facility] [address] [place] [address] Organization [facility] Care Team Providers Care Track Watchman Name Role Phone Mckinley Que UdDin Primary Care Provider [phone] Medications Current Medications Medication Drug Class(es) Dates [...] 85.28 kg Amparo Mendenhall APRN.CNP Work Phone: [facility] 09-21-2021 07:29-0400 Diastolic blood pressure 80 mm[Hg] Amparo Mendenhall APRN.CNP Work Phone: [facility] 09-21-2021 07:29-0400 Systolic blood pressure 138 mm[Hg] Amparo Mendenhall APRN.CNP Work Phone: [facility] Encounters Encounter Date Encounter Type Care Provider Facility Start: 09-27-2021 Telephone encounter Amparo nair APRN.CNP Work Phone: OB/Gynecology Plan of Treatment Date Care Activity Detail Author Start: 12-30-2023 DIABETES SCREEN DIABETES SCREEN [facility] Start: 11-03-2021 Influenza vaccination INFLUENZA (#1) [facility] Start: 09-21-2021 End: 11-21-2021 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 [facility] Work Phone: Payers Date Payer Category Payer Private Health Insurance [facility] AARP SUPPLEMENT [id number] 2021-Present [phone] [address] [place] [address] Indemnity [id number] 2008 Medicare MEDICARE MEDICAR E A AND B [id number] 2008-Present [phone] [address] [address] [place] [address] Medicare [id number] Social History Date Type Detail Facility [facility]: [facility] Start: 09-21-2021 Tobacco use and exposure Smoke less tobacco non-user [facility] Start: 09-21-2021 Alcohol intake Ex-drinker (finding) [facility] Start: 1945 Sex Assigned At Not on file C [facility] Start: 09-11-2021 End: 09-21-2021 Exposure to SARS-CoV-2 (event) Not sure [facility] Note 09-27-2021 Telephone Encounter - Amparo Mendenhall [...] Amparo Mendenhall APRN.CNP documented in this encounter [facility] Progress note 09-21-2021 Note Date & Type Note Facility 09-21-2021 Note HNO ID: [id number] Author: Amparo Mendenhall APRN.CNP Service: ? Author [...] OB History No obstetric history on file. Barrel Scraper History LMP: Postmenopausal Age at Menarche: Age at First : Age at Menopause: Barrel Scraper History Comments: Sexual Activity: No sexual activity [...] minora. No plaques. Normal Bartholin's glands, urethra, [place]'s glands, physiologic discharge present. Cervix surgically absent. [...] Medical Decision Making [facility]: 4 - [facility]21 Patient Instructions Note Date & Type Note Facility 09-21-2021 Instructions Amparo Mendenhall APRN.YOSVANY - 09/21/2021 7:55 AM EDT Use incontinence pads only documented in this encounter [facility] History of Present illness Narrative 09-21-2021 Amparo [...] OB History No obstetric history on file. Barrel Scraper History LMP: Postmenopausal Age at Menarche: Age at First : Age at Menopause: Barrel Scraper History Comments: Sexual Activity: No sexual activity [...] minora. No plaques. Normal Bartholin's glands, urethra, [place]'s glands, physiologic discharge present. Cervix surgically absent. [...] 4 - Moderate documented in this encounter [facility] Evaluation note Note Date & Type Note Facility documented in this encounter [facility] Summary Purpose Family History No Family History [...] or prosecute any alcohol or drug abuse patient.[facility] the event this information is protected by the Federal Confidentiality of Alcohol and Drug Abuse Patient Records regulations: The Federal rules restrict any use of the information to criminally investigate or prosecute any alcohol or drug abuse patient.[facility] Reason for Visit (unrecogniz ed section and content) Reason Comments Results Clinical Update Care Teams (unrecognized sec tion and content) Track Watchman Relationship Specialty Start Date End Date Mckinley Que Ud-Din [phone] [address] PCP - General 08/12/03 INFORMATION [...] BE BASED ON THE PRIMARY CLINICAL RECORDS. [employer] [facility]. provides no warranty or guarantee of the accuracy or completeness of information in this document.
== END | disposition home or self-care (01) ==
LOC: CT 12:14
PROVIDERS: PCP Internal Medicine; Referring Provider Nurse Practitioner; Visit Provider Internal Medicine Gastroenterology
DX: Z12.31 Encounter for screening mammogram for malignant neoplasm of breast (principal); R51.9 Headache, unspecified
CPT/HCPCS: 70450; 77063; 77067

== ENCOUNTER → 2023-06-11 | Outpatient (CLI) | payer MEDICARE, OTHER, SELFPAY | END | disposition home or self-care (01) | LOC: PSN 06:48 | PROVIDERS: PCP Internal Medicine; Referring Provider Nurse Practitioner; Visit Provider Nurse Practitioner | DX: R00.2 Palpitations (principal) | CPT/HCPCS: 93225; 93226 ==

== ENCOUNTER → 2023-06-14 | Outpatient (CLI) | payer MEDICARE, OTHER, SELFPAY ==
--- NOTE | 2023-06-14 07:48 | ECHOD_ITS ---
Reason For Study: MURMUR Procedure This was a 2D Doppler, Color Flow transthoracic echocardiogram. Left Ventricle Normal LV size. The estimated ejection fraction is 65 %. Unable to assess diastolic dysfunction. No regional wall motion abnormalities noted. Right Ventricle Normal RV size. Normal systolic function. Atria The left atrium is mildly enlarged. Normal right atrium. No doppler evidence for ASD. Mitral Valve There is moderate to severe mitral annular calcification. There is no mitral valve stenosis. Trivial mitral valve insufficiency. Tricuspid Valve There is no tricuspid stenosis. No tricuspid valve insufficiency. Unable to estimate RV systolic pressure due to insufficient tricuspid regurgitant envelope. Aortic Valve Trisinus/trileaflet aortic valve. Aortic sclerosis, no stenosis. There is no aortic stenosis. No aortic valve insufficiency. Pulmonic Valve There is no pulmonic valvular stenosis. No pulmonic valve insufficiency. Great Vessels Normal aortic root. Pericardium/Pleural No pericardial effusion. MMode/2D Measurements & Calculations LVIDd: 4.9 cm IVSd: 1.1 cm Ao root diam: 3.7 cm LVIDs: 3.2 cm LVPWd: 1.1 cm RVDd: 2.7 cm FS: 34.9 % LAV(MOD-bp): 72.1 ml LVAd ap4: 24.8 cm2 SV(MOD-sp4): 39.0 ml LAV(MOD-bp) Indexed: 37.6 ml/m2 LVLd ap4: 7.7 cm LAV(MOD-sp2): 79.6 ml EDV(MOD-sp4): 68.2 ml LAV(MOD-sp4): 63.0 ml EDV(sp4-el): 68.1 ml LVAs ap4: 13.6 cm2 LVLs ap4: 5.9 cm ESV(MOD-sp4): 29.2 ml ESV(sp4-el): 26.8 ml EF(MOD-sp4): 57.2 % EF(sp4-el): 60.7 % SV(sp4-el): 41.3 ml LA A4 area: 21.7 cm2 LA dimension(2D): 3.8 cm RA A4 area: 18.1 cm2 TAPSE: 2.7 cm Time Measurements MV dec time: 0.26 sec Doppler Measurements & Calculations MV E max carlos: 88.9 cm/sec Lat Peak E' Carlos: 5.8 cm/sec Med Peak E' Carlos: 6.6 cm/sec MV A max carlos: 77.9 cm/sec E/E' lat: 15.3 E/E' med: 13.5 MV E/A: 1.1 MV V2 max: 103.3 cm/sec MV P1/2t max carlos: 80.3 cm/sec Ao V2 max: 190.2 cm/sec MV max P.3 mmHg MV P1/2t: 71.2 msec Ao max P.5 mmHg MV V2 mean: 63.4 cm/sec Ao V2 mean: 126.8 cm/sec MV mean P.8 mmHg MV dec slope: 330.3 cm/sec2 Ao mean P.5 mmHg MV V2 VTI: 23.8 cm MVA(P1/2t): 3.1 cm2 Ao V2 VTI: 43.4 cm AV (velocity ratio): 0.62 LV V1 max: 111.1 cm/sec PA V2 max: 101.9 cm/sec TR max carlos: 229.5 cm/sec LV V1 max P.9 mmHg PA V2 mean: 66.2 cm/sec TR max P.1 mmHg LV V1 mean P.1 mmHg LV V1 mean: 85.1 cm/sec LV V1 VTI: 27.0 cm ECHO/Echo Complete Interpretation Summary The estimated ejection fraction is 65 %. Unable to assess diastolic dysfunction. The left atrium is mildly enlarged. Trivial mitral valve insufficiency. Ordering Physician: Paige Paredes Referring Physician: Paige Paredes Performed By: Glendy Tay, JOSE, RVT
== END | disposition home or self-care (01) ==
LOC: CVS 07:47
PROVIDERS: PCP Internal Medicine; Referring Provider Nurse Practitioner; Visit Provider Nurse Practitioner
DX: R01.1 Cardiac murmur, unspecified (principal)
CPT/HCPCS: 93306

== ENCOUNTER → 2023-10-31 | Outpatient (CLI) | payer MEDICARE, OTHER, SELFPAY ==
[2023-10-31 15:21] LABS: Hematocrit 39.8 % (37-47); Hemoglobin 12.9 g/dL (12.0-15.0); Mean Corp Hgb Conc 32.4 g/dL (32-36); Mean Corpuscular Hgb 30.9 pg (27.0-32.0); Mean Corpuscular Volume 95.2 fL (81-99); Mean Platelet Vol. 9.7 fl (6.2-12.0); Platelet Count 374 K/mm3 (150-450); RBC Distribution Width CV 14.1 % (11.6-14.6); RBC Distribution Width SD 49.5 fl (35.1-43.9); Red Blood Count 4.18 M/mm3 (4.2-5.4); White Blood Count 6.6 K/mm3 (4.4-11.0)
[2023-10-31 16:39] LABS: ALB/GLOB Ratio 0.9 RATIO (0.9-2.4); AST(SGOT) 22 U/L (15-37); Alanine Aminotransfer ALT/SGPT 14 U/L (13-56); Albumin, Serum 3.2 g/dL (3.2-5.0); Alkaline Phosphatase 96 U/L (45-117); Anion Gap 5 (5-15); BUN 17 mg/dL (7-18); BUN/Creat Ratio 25.1 RATIO (10-20); Calcium,Total 8.8 mg/dL (8.5-10.1); Chloride 108 mmol/L (98-107); Creatinine, Serum 0.68 mg/dL (0.55-1.02); EST Glomerular Filtration Rate 89 mL/min (>60); Est Glom Filt Rate - Afr Amer 107 mL/min (>60); Estradiol < 11.0 pg/mL; Free T3 2.3 pg/mL (2.18-3.98); Globulin 3.5 g/dL (2.2-4.2); Glucose 105 mg/dL (74-106); Potassium 4.3 mmol/L (3.5-5.1); Protein, Total 6.7 g/dL (6.4-8.2); Sodium Level 139 mmol/L (136-145); T4 Free Direct 0.95 ng/dL (0.76-1.46)
[2023-10-31 17:23] LABS: Vitamin B12 > 2000 pg/mL (211-911); Vitamin D,25 Hydroxy 78.5 ng/mL
[2023-11-02 10:10] LABS: Thyroid Peroxidase AB 16 IU/mL (0-34)
== END | disposition home or self-care (01) ==
LOC: MTLAB 13:30
PROVIDERS: PCP Internal Medicine; Referring Provider Registered Nurse; Visit Provider Registered Nurse
DX: R53.83 Other fatigue (principal); R63.5 Abnormal weight gain; I10 Essential (primary) hypertension
CPT/HCPCS: 36415; 80053; 82306; 82607; 82670; 83001; 84402; 84403; 84439; 84443; 84481; 85027; 86376

== ENCOUNTER → 2024-02-19 | Outpatient (CLI) | payer MEDICARE, OTHER, SELFPAY ==
--- NOTE | 2024-02-19 13:36 | STE_ITS ---
Reason For Study: Pre-op clearance/Dyspnea/Chest pain Stress Results Protocol: Stress Echocardiogram El Protocol Maximum Predicted HR: 139 bpm Target HR: 118 bpm % Maximum Predicted HR: 94 % DurationHeart Rate Stage (mm:ss) (bpm) BP Comment Baseline 60 140/80Patient denies chest pain or dyspnea Stage 1 3:00 110 162/80Patient denies chest pain or dyspnea Stage 2 3:00 126 172/80Patient denies chest pain. Mild dyspnea Stage 3 0:30 130 / Patient denies chest pain. Moderate dyspnea. Recovery 81 132/72Patient denies chest pain or dyspnea. Stress Duration: 6:30 mm:ss Maximum Stress HR: 130 bpm Baseline Echocardiogram Findings Stress Echo Wall motion Data Resting WM Intermediate WM Stress WM Time Measurements MV dec time: 0.35 sec Doppler Measurements & Calculations MV E max enrike: 71.1 cm/sec MV dec slope: 204.6 cm/sec2 TR max enrike: 231.9 cm/sec MV A max enrike: 81.9 cm/sec TR max P.5 mmHg MV E/A: 0.87 ECHO/Stress Test Echo w/o Contrast Interpretation Summary Exercise stress echo. 79-year-old lady for preoperative cardiac evaluation. Resting EKG demonstrates sinus rhythm with a rate of 60 bpm resting blood press ure is 140/80 mmHg. The patient exercised according to regular El protocol for 6-1/2 minutes com pleting 30 seconds into stage III of the El protocol. The maximum heart rate attained was 134 b pm which was 96% of max impacted heart rate the maximum workload was 8.4 metabolic equivalents. At rest there were no ST or T wave changes noted suggest ischemia and at peak exercise upsloping ST alvarez ges were noted we did not meet the criteria for ischemia no clinical angina was noted the test was te rminated due to leg fatigue. The peak blood pressure was noted to be 172/80 mmHg which was a good b lood pressure response to exercise. Stress echocardiogram. Resting echocardiogram demonstrated normal left ventricular size with overall p reserved left ventricular systolic function estimated at 65% with no wall motion abnormalitie s noted. At peak exercise there was thickening of all small reduction of low ventricular cavity size and peaking of ejection fraction 75% with no wall motion abnormalities noted to suggest ischem ia. Conclusion: Exercise stress echocardiogram with no evidence of ischemia noted at a moderate to high workload. Normal resting echocardiogram noted. Ordering Physician: Pablo Tobias Referring Physician: Pablo Tobias Performed By: Melva Sharp, JOSE, RVT
== END | disposition home or self-care (01) ==
LOC: CVS 13:36
PROVIDERS: PCP Internal Medicine; Referring Provider Internal Medicine Cardiovascular Disease; Visit Provider Internal Medicine Cardiovascular Disease
DX: R07.9 Chest pain, unspecified (principal); R06.09 Other forms of dyspnea
CPT/HCPCS: 93017; 93350

== ENCOUNTER 2024-03-04 12:46 | Day surgery (SDC) | payer MEDICARE, OTHER, SELFPAY ==
--- NOTE | 2024-02-28 14:46 | PAT.ANESEVAL ---
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 When Was Last Pacemaker Check QUESTION #4 FULL TEXT: You/Your Family Experience fever (hyperthermia) with Anesthesia Last Oral Intake Last Oral intake: Last Oral Intake NPO since Meds taken in AM with sips of water? Meds patient instructed to take am of surgery PONV PONV - sanitation inspector: PONV - sanitation inspector Female Yes 02/28/24 14:23 HX of Motion Sickness No 02/28/24 14:23 HX of N/V After Surgery No 02/28/24 14:23 Non-Smoker Yes 02/28/24 14:23 Duration of Surgery greater No 02/28/24 14:23 than 60 minutes Number of Risk Factors 2 02/28/24 14:23 PONV Score Moderate Risk 02/28/24 14:23 Height & Weight Height & Weight: Anesthesia: Height & Weight Height 5 ft 5 in 08/14/23 09:23 Respiratory Assessment Respiratory Assessment - sanitation inspector: Respiratory Tract Infection Hx - sanitation inspector Hx Respiratory Tract Infection No 02/28/24 14:23 STOP Sleep Apnea STOP Sleep Apnea - sanitation inspector: STOP Sleep Apnea - sanitation inspector Hx Hypertension No 02/28/24 14:23 Hx Sleep Apnea No 02/28/24 14:23 CPAP BIPAP Do you snore loudly (louder No 02/28/24 14:23 than talking or can be heard Do you often feel tired/ No 02/28/24 14:23 fatigued/ sleepy during daytime? Has anyone observed you stop No 02/28/24 14:23 breathing during sleep? STOP Results Negative 02/28/24 14:23 QUESTION #5 FULL TEXT : Do you snore loudly (louder than talking or can be heard through closed doors)? 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 Specify any problems Hx of Preganancy in last 3 No 02/28/24 14:23 Months Nurse Filling Out Transfusion VCHRISTIN 02/28/24 14:23 & Questions: Date: 02/28/24 02/28/24 14:23 Time: 14:23 02/28/24 14:23 Patient unable to answer at this time (ie. confused, unrespo /Reproduction History /Reproductive History - sanitation inspector: /Reproductive Hx- sanitation inspector Hx Now No 02/28/24 14:23 Gestational Age (in weeks): EDC: Hx Hx Para Hx Section SAB No 02/28/24 14:23 [facility] Medical History (Updated 02/28/24 @ 14:22 by Sarai Hernandez) History of Holter monitoring Normal stress echocardiogram History of echocardiogram Cardiology follow-up encounter Near syncope Systolic murmur Palpitations Chest congestion Cough Hypertension Wears glasses Non-smoker History of celiac disease Hx of colonic polyps Home Medications ?Medication ?Instructions ?Recorded ?Last Taken ?Type cholecalciferol (vitamin D3) 100 100 mcg PO DAILY 04/03/22 Unknown History mcg (4,000 unit) tablet ascorbic acid (vitamin C) 1,000 mg 1 cap PO DAILY 05/18/22 Unknown History capsule,extended release metoprolol succinate 25 mg 25 mg PO QHS #90 tabs 01/09/24 Unknown Rx tablet,extended release 24 hr amlodipine 10 mg tablet 10 mg PO DAILY #90 tabs 02/15/24 Unknown Rx Allergy/AdvReac Type Severity Reaction Status Date / Time No Known Allergies Allergy Verified 02/28/24 14:18 Family History Mother Breast cancer Sister Breast cancer Brother Heart disease Hypertension Surgical History (Updated 02/28/24 @ 14:22 by Sarai Hernandez) Hx of esophagogastroduodenoscopy Hx of colonoscopy Hx of lumbar discectomy H/O lumpectomy H/O: hysterectomy H/O breast biopsy Social History household members: children housing: house current occupational status: retired Smoking Status: Never smoker alcohol intake: current alcohol intake frequency: holidays/special occasions only substance use type: does not use caffeine: Yes what type of physical activity do you participate in: walking and weight training frequency: 3-4 times per week seatbelt use: always do you feel safe at home: Yes additional social history: Audit: Pertinent Findings Pertinent Findings EKG Perinent findings: February 15, 2024. Sinus rhythm. Stress test pertinent findings: February 19, 2024. Resting ejection fraction is 65%. Increases to 75% with stress. No evidence of ischemia noted at moderate to high workload. Echo (EF%) pertinent findings: June 14, 2023. Ejection fraction 65%. No aortic stenosis noted. Consult pertinent findings: February 15, 2024. Dr. Tobias. 1. Dyspnea on exertion is acute-plan for stress test 2.chest pain is acute-plan for stress test to evaluate. See above. Additional pertinent findings: Holter monitor performed on June 11, 2023. Holter was performed for 42 hours and showed normal sinus rhythm. There was a total of 105 ventricular ectopic beats. There is a 1% load of supraventricular ectopic beats. No atrial fibrillation noted Recommendation Anesthesia Recommendation Anesthesia recommendation: OPTIMIZED for anesthesia
[2024-03-04] VITALS (8 sets, daily range): BP systolic 98–142; BP diastolic 63–90; PULSE 60–74; RESP 16; TEMP 36.1–36.3; O2SAT 92–97; BMI 29.2
--- NOTE | 2024-03-04 13:42 | PCM.HP.STD ---
HPI - General General Date of Admission: 03/04/24 Date of Service: 03/04/24 Chief Complaint: diarrhea HPI Narrative JELANI SEARS, is a 79 F who presents to the office today for establishment with [facility]. Pt has had daily loose stools for a couple of months now. She has had no major life changes, dietary changed or medication changes. She is aware of prior diagnosis of celiac disease but does not follow a gluten free diet. She does not believe this is the reason for her diarrhea. She eats the same things daily and will have diarrhea about an hour or two after eating. Her typical meals consist of eggs, prtoein drink, salad, potatoes and meat. She has diarrhea daily and formed stools a few times per week. Since her colonoscopy in 2022 she no longer feels the the sensation of needing to have a bm. She would like to have a colonoscopy to assess her rectum and colon. Pt states her aunts and uncles in her family have of colon cancer so she is concerned. She has no upper GI concerns. Denies heartburn, n/v, epigastric pain, or blood in her stool. EGD 05.22.22; - Z-line irregular, 40 cm from the incisors. Biopsied. - Normal examined duodenum. Biopsied. - Erythematous mucosa in the antrum. Biopsied. - Discolored mucosa in the esophagus. Biopsied. Colonoscopy 05.22.22 - One less than 5 mm polyp in the ascending colon, removed with a cold biopsy forceps. Resected and retrieved. - Diverticulosis in the ascending colon. - The examination was otherwise normal on direct and retroflexion view [facility] Medical History Health care maintenance Hyperlipidemia History of Holter monitoring Normal stress echocardiogram History of echocardiogram Cardiology follow-up encounter Near syncope Systolic murmur Palpitations Chest congestion Cough Hypertension Wears glasses Non-smoker History of celiac disease Hx of colonic polyps Home Medications ?Medication ?Instructions ?Recorded ?Last Taken ?Type cholecalciferol (vitamin D3) 100 100 mcg PO DAILY 04/03/22 Unknown History mcg (4,000 unit) tablet ascorbic acid (vitamin C) 1,000 mg 1 cap PO DAILY 05/18/22 Unknown History capsule,extended release metoprolol succinate 25 mg 25 mg PO QHS #90 tabs 01/09/24 Unknown Rx tablet,extended release 24 hr amlodipine 10 mg tablet 10 mg PO DAILY #90 tabs 02/15/24 03/04/24 Rx Allergy/AdvReac Type Severity Reaction Status Date / Time No Known Allergies Allergy Verified 03/04/24 13:14 Family History Mother Breast cancer Sister Breast cancer Brother Heart disease Hypertension Surgical History Hx of esophagogastroduodenoscopy Hx of colonoscopy Hx of lumbar discectomy H/O lumpectomy H/O: hysterectomy H/O breast biopsy Social History household members: children housing: house current occupational status: retired Smoking Status: Never smoker alcohol intake: current alcohol intake frequency: holidays/special occasions only substance use type: does not use caffeine: Yes what type of physical activity do you participate in: walking and weight training frequency: 3-4 times per week seatbelt use: always do you feel safe at home: Yes additional social history: ROS Constitutional Constitutional: Denies fatigue, fever(s), poor appetite, weight gain or weight loss Gastrointestinal Gastrointestinal: Denies belching, bloating, change in bowel habits, change in stool character, chewing difficulty, coffee ground emesis, constipation, cramping, diarrhea, dyspepsia, dysphagia, early satiety, excessive flatus, fecal incontinence, heartburn, hematemesis, hematochezia, hemorrhoids, loose stools, melena, nausea, odynophagia, rectal bleeding, tenesmus, vomiting or weight changes Vital Signs Vital Signs Vital Signs: 03/04/24 13:16 03/04/24 13:16 Temperature 97.4 F L Temperature Source Temporal Pulse Rate 60 Respiratory Rate 16 Respiratory Pattern Normal Blood Pressure 142/72 H Blood Pressure Mean 95 Blood Pressure Source Monitor Blood Pressure Position Semi-Fowlers Blood Pressure Location Right Arm Pulse Ox 97 Oxygen Delivery Method Room Air Weight Weight: 180 lb 12.465 oz Body Mass Index (BMI) 29.2 Physical Exam Const alert, oriented x3 and no apparent distress HEENT normocephalic and head/scalp atraumatic Resp normal respiratory effort Cardio regular rate GI soft to palpation and non-tender; Negative for non-distended Palpation: Negative for guarding Extremity no clubbing, cyanosis or edema Neuro CN's II-XII intact bilaterally Psych mental status grossly normal Assessment & Plan Assessment/Plan (1) Diarrhea: PLAN: Assessment and Plan Assessment and Plan (1) Diarrhea: Status: Acute Plan: This is an 79 yo female here today for evaluation of diarrhea. Her last colonoscopy was in 2022 with one polyp. She is aware of prior diagnosis of Celiac but has never adhered to a gluten free. I discussed this could be the reason for her loose stools after eating. She does not wish to undergo Celiac blood panel or to see a sales service representative. She does however wish to have a colonoscopy to assess her rectum as she feels there may be something wrong with it. She will undergo another colonoscopy. -colonoscopy -recommended celiac panel; declined
--- NOTE | 2024-03-04 14:00 | IMM_PTH ---
PATIENT: JELANI SEARS LOC: EN U#:[id number] AGE/SX: 79/F ROOM: RE03/04/[address]: Dr. Russ Rebollar DO : 1945 BED: DIS: 03/04/2024 SPEC #: [id number] RECD: 03/06/24 10:28 STATUS: PAULINE REQ #: [id number] SHANIKA: 03/04/24 14:[address]: Russ Rebollar DEPT: IMMUNOHISTOCHEMISTRY RECD BY: Tyler Frank ENTERED: 03/06/24 10:28 SP TYPE: IMMUNO OTHR DR: Dr. Clay Hager MD Tissues: C - Gastric mucous membrane Procedures: H Pylori (initial) PHYSICIAN & [place] [id number] SPECIMEN INFORMATION: Tissue Source: C- Gastric antrum biopsy Clinical Info: Diarrhea Specimen Number: [id number] CPT code: 32694 METHODOLOGY: Deparaffinized sections of prefer/formalin-fixed tissue or PAP/DQ stained slides are incubated with monoclonal/polyclonal antibodies/oligonucleotide probes. Localization is made via biotin free immunoperoxidase method. Appropriate controls are performed and reacted as expected. Results on target cell population are indicated in the following table: RESULTS: ANTIBODY / CLONE RESULT Block C H Pylori (polyclonal) negative These tests were developed and their performance characteristics determined by [facility]. They may not have been cleared or approved by the U.S. Food and Drug Administration. The FDA has determined that such clearance or approval is not necessary. The above immunohistochemical/dualISH markers are ordered and reviewed by the Pathologist. INTERPRETATION: C. Gastric antrum, biopsy: Negative for Helicobacter pylori organisms. 03/07/2024
--- NOTE | 2024-03-04 14:00 | EGD_PTH ---
PATIENT: JELANI SEARS LOC: EN U#:[id number] AGE/SX: 79/F ROOM: RE03/04/[address]: Dr. Russ Rebollar DO : 1945 BED: DIS: 03/04/2024 SPEC #: [id number] RECD: 03/06/24 07:36 STATUS: PAULINE MARIA DOLORES #: [id number] SHANIKA: 03/04/24 14:[address]: Russ Rebollar DEPT: SURGICAL PATHOLOGY RECD BY: Gretel Mcdonald ENTERED: 03/06/24 07:37 SP TYPE: EGD BIOPSY OT DR: Dr. Clay Hager MD Tissues: A - Esophagus, NOS B - Duodenum, NOS C - Gastric mucous membrane D - Ileum, NOS E - COLON BIOPSY Procedures: Surgery Specimen Level IV HEADER OPERATION: Colonoscopy with biopsy, EGD PRE-OP DIAGNOSIS: Diarrhea TISSUE SUBMITTED: A- Distal esophagus biopsy, B- Duodenum biopsy, C- Gastric antrum biopsy, D- Terminal ileum biopsy, E- Random colon biopsy MICROSCOPIC DIAGNOSIS A. Distal esophagus, biopsy: Fragments of gastroesophageal mucosa with moderate chronic inflammation and changes consistent with gastroesophageal reflux disease. Intestinal metaplasia (goblet cell metaplasia) not identified. See comment. B. Duodenum, biopsy: Fragments of duodenal mucosa with moderate to marked chronic inflammation, villous flattening and blunting. C. Gastric antrum, biopsy: Moderate gastritis. See microscopic description and comment. D. Terminal ileum, biopsy: Fragments of small intestinal mucosa, no pathologic diagnosis. See comment. E. Colon, random biopsy: Fragments of colonic mucosa, no pathologic diagnosis. 03/07/2024 COMMENT A. Alcian blue/PAS stain with matched control is used in the evaluation of the specimen. C. The results of immunohistochemistry for Helicobacter pylori will be reported separately ([id number]). D. Prominent lymphoid aggregates are noted. MICROSCOPIC DESCRIPTION Slides are reviewed. C. The specimen shows fragments of gastric mucosa with chronic inflammatory cell infiltrates in the lamina propria consisting of lymphocytes and plasma cells, consistent with moderate chronic gastritis. GROSS DESCRIPTION A. Received in fixative is one container labeled with the patient's name and designated Distal esophagus biopsy. The specimen consists of multiple irregular fragments of light glez soft tissue that in aggregate measure 1.5 x 0.3 x 0.1 cm. The specimen is totally submitted in one cassette. B. Received in fixative is one container labeled with the patient's name and designated Duodenum biopsy. The specimen consists of multiple irregular fragments of light glez soft tissue that in aggregate measure 0.6 x 0.3 x 0.1 cm. The specimen is totally submitted in one cassette. C. Received in fixative is one container labeled with the patient's name and designated Gastric antrum biopsy. The specimen consists of two irregular fragments of light glez soft tissue that in aggregate measure 0.5 x 0.5 x 0.1 cm. The specimen is totally submitted in one cassette. D. Received in fixative is one container labeled with the patient's name and designated Terminal ileum biopsy. The specimen consists of two irregular fragments of light glez soft tissue that in aggregate measure 0.6 x 0.3 x 0.1 cm. The specimen is totally submitted in one cassette. E. Received in fixative is one container labeled with the patient's name and designated Random colon biopsy. The specimen consists of multiple irregular fragments of light glez soft tissue that in aggregate measure 2.0 x 0.6 x 0.1 cm. The specimen is totally submitted in one cassette. SJ 03/06/2024 TC:3 CPT:26128j4,58748
--- NOTE | 2024-03-04 14:36 | PRE.ANES_ITS ---
ASA Classification* ASA Classification ASA Classification: 2 Assessment & Plan Anesthesia* Anesthesia Assessment Anesthesia Assessment: Discussed sedation and/or anesthesia options, risks, benefits, and alternatives with patient/parents/legal guardian/POA. Questions invited. The patient/parents/legal guardian/POA seems to understand and agrees to proceed with anesthesia plan. Reviewed the physical assessment, medical history, allergy history and patient home medications list prior to surgery/procedure/anesthetic and documented any changes. Performed airway and anesthesia risk assessments. Anesthesia Type Anesthesia Type: MAC History Source History Obtained from:: Patient and Chart Anesthesia Focused Assessment* Temperature: 97.4 F Pulse Rate: 60 Blood Pressure: 142/72 Respiratory Rate: 16 Pulse Ox: 97 Oxygen Delivery Method: Room Air Airway Assessment Mouth opens: >3 cm Mallampati Score: II Teeth Condition: Caps/Crowns (Patient has several crowns upper incisors. They are all tight.) Neck Range of motion (ROM): Full ROM Focused Labs Anesthesia Preop lab: CBC WBC 6.6 K/mm3 (4.4-11.0) 10/31/23 13:32 RBC 4.18 M/mm3 (4.2-5.4) L 10/31/23 13:32 Hgb 12.9 g/dL (12.0-15.0) 10/31/23 13:32 Hct 39.8 % (37-47) 10/31/23 13:32 Plt Count 374 K/mm3 (150-450) 10/31/23 13:32 CHEMISTRY Potassium 4.3 mmol/L (3.5-5.1) 10/31/23 13:32 Sodium 139 mmol/L (136-145) 10/31/23 13:32 BUN 17 mg/dL (7-18) 10/31/23 13:32 Creatinine 0.68 mg/dL (0.55-1.02) 10/31/23 13:32 Glucose 105 mg/dL (74-106) 10/31/23 13:32 TSH 2.020 uIU/mL (0.358-3.740) 10/31/23 13:32 COAG Pre-Assessment Diagnosis/Proposed Procedure Planned Operative Procedure(s): COLONOSCOPY/EGD Anesthesia History Anesthesia History - manager of compensation: Anesthesia History - manager of compensation Hx Hospitalization No 12/26/24 14:23 Any Problems With Anesthesia No 02/28/24 14:23 Cholinesterase deficiency No 02/28/24 14:23 You/Your Family Experience No 02/28/24 14:23 fever (hyperthermia) with Relationship Recent Exposure to Contagious No 03/04/24 13:16 Disease Does patient have nerve No 02/28/24 14:23 stimulator Patient instructed to have device shut off --Does patient have Pacemaker No 03/04/24 13:16 or ICD? When Was Last Pacemaker Check QUESTION #4 FULL TEXT: You/Your Family Experience fever (hyperthermia) with Anesthesia Last Oral Intake Last Oral intake: Last Oral Intake NPO since 09:30 03/04/24 13:16 Meds taken in AM with sips of Yes 03/04/24 13:16 water? Meds patient instructed to take am of surgery Any additional information?: Yes NPO since: : (Patient finished prep at 9:30 AM.) Meds taken in AM with sips of water?: Yes PONV PONV - manager of compensation: PONV - manager of compensation Female Yes 02/28/24 14:23 HX of Motion Sickness No 02/28/24 14:23 HX of N/V After Surgery No 02/28/24 14:23 Non-Smoker Yes 02/28/24 14:23 Duration of Surgery greater No 02/28/24 14:23 than 60 minutes Number of Risk Factors 2 02/28/24 14:23 PONV Score Moderate Risk 02/28/24 14:23 Height & Weight Height & Weight: Anesthesia: Height & Weight Height 5 ft 6 in 03/04/24 13:16 Weight: 82 kg 03/04/24 13:16 Body Mass Index (BMI) 29.2 03/04/24 13:16 Respiratory Assessment Respiratory Assessment - manager of compensation: Respiratory Tract Infection Hx - manager of compensation Hx Respiratory Tract Infection No 02/28/24 14:23 STOP Sleep Apnea STOP Sleep Apnea - manager of compensation: STOP Sleep Apnea - manager of compensation Hx Hypertension No 02/28/24 14:23 Hx Sleep Apnea No 02/28/24 14:23 CPAP BIPAP Do you snore loudly (louder No 02/28/24 14:23 than talking or can be heard Do you often feel tired/ No 02/28/24 14:23 fatigued/ sleepy during daytime? Has anyone observed you stop No 02/28/24 14:23 breathing during sleep? STOP Results Negative 02/28/24 14:23 QUESTION #5 FULL TEXT : Do you snore loudly (louder than talking or can be heard through closed doors)? Tobacco Use History Tobacco Use History - manager of compensation: Tobacco Use History - manager of compensation Tobacco Use Smoking Status Never smoker 02/28/24 14:23 Hx Tobacco Use No 02/28/24 14:23 Years Smoking Packs Smoked per Day Smoking Cessation Date was within the last 15 years Hx Smoking Cessation Date Hx Smoking Cessation Counseling Hematologic Medial History Hematologic Hx - manager of compensation: Hematologic Medical Hx - grade tamper Hx of Blood Transfusion No 02/28/24 14:23 Hx of Transfusion in last 3 No 02/28/24 14:23 Months Date of Last Transfusion (if within last 3 months) Ever experience any problems No 02/28/24 14:23 with transfusion(s)? Specify any problems Hx of Preganancy in last 3 No 02/28/24 14:23 Months Nurse Filling Out Transfusion VCHRISTIN 02/28/24 14:23 & Questions: Date: 02/28/24 02/28/24 14:23 Time: 14:23 02/28/24 14:23 Patient unable to answer at this time (ie. confused, unrespo /Reproduction History /Reproductive History - manager of compensation: /Reproductive Hx- manager of compensation Hx Now No 02/28/24 14:23 Gestational Age (in weeks): EDC: Hx Hx Para Hx Section SAB No 02/28/24 14:23 PFSH Medical History Health care maintenance Hyperlipidemia History of Holter monitoring Normal stress echocardiogram History of echocardiogram Cardiology follow-up encounter Near syncope Systolic murmur Palpitations Chest congestion Cough Hypertension Wears glasses Non-smoker History of celiac disease Hx of colonic polyps Home Medications ?Medication ?Instructions ?Recorded ?Last Taken ?Type cholecalciferol (vitamin D3) 100 100 mcg PO DAILY 04/03/22 Unknown History mcg (4,000 unit) tablet ascorbic acid (vitamin C) 1,000 mg 1 cap PO DAILY 05/18/22 Unknown History capsule,extended release metoprolol succinate 25 mg 25 mg PO QHS #90 tabs 01/09/24 Unknown Rx tablet,extended release 24 hr amlodipine 10 mg tablet 10 mg PO DAILY #90 tabs 02/15/24 03/04/24 Rx Allergy/AdvReac Type Severity Reaction Status Date / Time No Known Allergies Allergy Verified 03/04/24 13:14 Family History Mother Breast cancer Sister Breast cancer Brother Heart disease Hypertension Surgical History Hx of esophagogastroduodenoscopy Hx of colonoscopy Hx of lumbar discectomy H/O lumpectomy H/O: hysterectomy H/O breast biopsy Social History household members: children housing: house current occupational status: retired Smoking Status: Never smoker alcohol intake: current alcohol intake frequency: holidays/special occasions only substance use type: does not use caffeine: Yes what type of physical activity do you participate in: walking and weight training frequency: 3-4 times per week seatbelt use: always do you feel safe at home: Yes additional social history: Review of Systems (Anesthesia) ROS Narrative System reviewed and no additional complaints, except as documented.
--- NOTE | 2024-03-04 15:27 | OP.EGD_ITS ---
Patient Name: Radha Pineda Procedure Date: 03/04/2024 2:43 PM Date of : 1945 Age: 79 Procedure: Upper GI endoscopy Indications: Epigastric abdominal pain, Functional Dyspepsia, Failure to respond to medical treatment Providers: Russ Rebollar DO Referring MD: Clay Hager MD Medicines: Monitored Anesthesia Care Patient Profile: This is an 79 year old female. Refer to note in patient chart for documentation of history and physical. Patient has symptoms of chronic abdominal cramping, acute epigastric abdominal pain and acute dyspepsia. Complications: No immediate complications. Procedure: Pre-Anesthesia Assessment: - Prior to the procedure, a History and Physical was performed, and patient medications and allergies were reviewed. The patient is competent. The risks and benefits of the procedure and the sedation options and risks were discussed with the patient. All questions were answered and informed consent was obtained. Patient identification and proposed procedure were verified by the physician in the pre-procedure area. Mental Status Examination: alert and oriented. Airway Examination: normal oropharyngeal airway and neck mobility. Respiratory Examination: clear to auscultation. CV Examination: normal. Prophylactic Antibiotics: The patient does not require prophylactic antibiotics. Prior Anticoagulants: The patient has taken no anticoagulant or antiplatelet agents except for NSAID medication. ASA Grade Assessment: II - A patient with mild systemic disease. After reviewing the risks and benefits, the patient was deemed in satisfactory condition to undergo the procedure. The anesthesia plan was to use monitored anesthesia care (MAC). Immediately prior to administration of medications, the patient was re-assessed for adequacy to receive sedatives. The heart rate, respiratory rate, oxygen saturations, blood pressure, adequacy of pulmonary ventilation, and response to care were monitored throughout the procedure. The physical status of the patient was re-assessed after the procedure. After obtaining informed consent, the endoscope was passed under direct vision. Throughout the procedure, the patient's blood pressure, pulse, and oxygen saturations were monitored continuously. The Colonoscope was introduced through the mouth, and advanced to the second part of duodenum. The upper GI endoscopy was accomplished without difficulty. The patient tolerated the procedure well. Scope In: 2:56:22 PM Scope Out: 3:00:26 PM Total Procedure Duration Time 0 hours 4 minutes 4 seconds Findings: Multiple areas of ectopic gastric mucosa were found in the upper third of the esophagus, 21 cm from the incisors. The Z-line was irregular and was found 39 cm from the incisors. Biopsies were taken with a cold forceps for histology. Verification of patient identification for the specimen was done. Estimated blood loss was minimal. A medium-sized hiatal hernia was present. Patchy mildly erythematous mucosa without bleeding was found in the gastric antrum. Biopsies were taken with a cold forceps for histology. Biopsies were taken with a cold forceps for histology. Verification of patient identification for the specimen was done. Estimated blood loss was minimal. Biopsies were taken with a cold forceps for Helicobacter pylori testing. Verification of patient identification for the specimen was done. Estimated blood loss was minimal. No gross lesions were noted in the second portion of the duodenum. Biopsies were taken with a cold forceps for histology. Verification of patient identification for the specimen was done. Estimated blood loss was minimal. Impression: - Ectopic gastric mucosa in the upper third of the esophagus. - Z-line irregular, 39 cm from the incisors. Biopsied. - Medium-sized hiatal hernia. - Erythematous mucosa in the antrum. Biopsied. - No gross lesions in the second portion of the duodenum. Biopsied. Recommendation: - Discharge patient to home. - Resume previous diet. - Continue present medications. - Await pathology results. Procedure Code(s): --- Professional --- 97918, Esophagogastroduodenoscopy, flexible, transoral; with biopsy, single or multiple CPT copyright 2021 [employer]. All rights reserved. The codes documented in this report are preliminary and upon lace finisher review may be revised to meet current compliance requirements. Russ Rebollar DO 03/04/2024 3:27:32 PM This report has been signed electronically. Number of Addenda: 0 Note Initiated On: 03/04/2024 2:43 PM
--- NOTE | 2024-03-04 15:28 | OP.CCLET_ITS ---
03/04/2024 Clay Hager MD [address] [place] [address] Re : Upper GI endoscopy procedure for Radha Pineda Dear Dr. Hager This procedure was performed on Monday, March 04, 2024. My impressions and recommendations are as follows: Impressions : - Ectopic gastric mucosa in the upper third of the esophagus. - Z-line irregular, 39 cm from the incisors. Biopsied. - Medium-sized hiatal hernia. - Erythematous mucosa in the antrum. Biopsied. - No gross lesions in the second portion of the duodenum. Biopsied. Recommendations : - Discharge patient to home. - Resume previous diet. - Continue present medications. - Await pathology results. My findings are described in the full procedure note, which is enclosed. If I can be of further assistance, please feel free to contact me at . Sincerely, Russ Rebollar, 03/04/2024 3:27:32 PM This report has been signed electronically.
--- NOTE | 2024-03-04 15:30 | OP.COLON_ITS ---
Patient Name: Radha Pineda Procedure Date: 03/04/2024 3:00 PM Date of : 1945 Age: 79 Procedure: Colonoscopy Indications: Chronic diarrhea Providers: Russ Rebollar DO Referring MD: Clay Hager MD Medicines: Monitored Anesthesia Care Patient Profile: This is an 79 year old female. Refer to note in patient chart for documentation of history and physical. Patient has symptoms of chronic abdominal cramping, acute epigastric abdominal pain and acute dyspepsia. Last Colonoscopy: within the past 3 years. Complications: No immediate complications. Procedure: Pre-Anesthesia Assessment: - Prior to the procedure, a History and Physical was performed, and patient medications and allergies were reviewed. The patient is competent. The risks and benefits of the procedure and the sedation options and risks were discussed with the patient. All questions were answered and informed consent was obtained. Patient identification and proposed procedure were verified by the physician in the pre-procedure area. Mental Status Examination: alert and oriented. Airway Examination: normal oropharyngeal airway and neck mobility. Respiratory Examination: clear to auscultation. CV Examination: normal. Prophylactic Antibiotics: The patient does not require prophylactic antibiotics. Prior Anticoagulants: The patient has taken no anticoagulant or antiplatelet agents except for NSAID medication. ASA Grade Assessment: II - A patient with mild systemic disease. After reviewing the risks and benefits, the patient was deemed in satisfactory condition to undergo the procedure. The anesthesia plan was to use monitored anesthesia care (MAC). Immediately prior to administration of medications, the patient was re-assessed for adequacy to receive sedatives. The heart rate, respiratory rate, oxygen saturations, blood pressure, adequacy of pulmonary ventilation, and response to care were monitored throughout the procedure. The physical status of the patient was re-assessed after the procedure. After I obtained informed consent, the scope was passed under direct vision. Throughout the procedure, the patient's blood pressure, pulse, and oxygen saturations were monitored continuously. The Colonoscope was introduced through the anus and advanced to the terminal ileum. The colonoscopy was performed without difficulty. The patient tolerated the procedure well. The quality of the bowel preparation was adequate. The terminal ileum, ileocecal valve, appendiceal orifice, and rectum were photographed. Scope In: 3:02:10 PM Scope Withdrawal Time 0 hours 14 minutes 30 seconds Scope Out: 3:20:47 PM Total Procedure Duration Time 0 hours 18 minutes 37 seconds Findings: The perianal and digital rectal examinations were normal. A few small-mouthed diverticula were found in the recto-sigmoid colon and sigmoid colon. An area of mildly congested mucosa was found in the rectum, in the recto-sigmoid colon, in the sigmoid colon and in the ascending colon. Biopsies were taken with a cold forceps for histology. Verification of patient identification for the specimen was done. Estimated blood loss was minimal. Impression: - Diverticulosis in the recto-sigmoid colon and in the sigmoid colon. - Congested mucosa in the rectum, in the recto-sigmoid colon, in the sigmoid colon and in the ascending colon. Biopsied. Recommendation: - Discharge patient to home. - Resume previous diet. - Continue present medications. - Await pathology results. - Repeat colonoscopy for surveillance based on pathology results. Procedure Code(s): --- Professional --- 44939, Colonoscopy, flexible; with biopsy, single or multiple CPT copyright 2021 [employer]. All rights reserved. The codes documented in this report are preliminary and upon nylon winder review may be revised to meet current compliance requirements. Russ Rebollar DO 03/04/2024 3:29:39 PM This report has been signed electronically. Number of Addenda: 0 Note Initiated On: 03/04/2024 3:00 PM
--- NOTE | 2024-03-04 15:30 | OP.CCLET_ITS ---
03/04/2024 Clay Hager MD [address] [place] [address] [place] [address] Re : Colonoscopy procedure for Radha Pineda Dear Dr. Hager This procedure was performed on Monday, March 04, 2024. My impressions and recommendations are as follows: Impressions : - Diverticulosis in the recto-sigmoid colon and in the sigmoid colon. - Congested mucosa in the rectum, in the recto-sigmoid colon, in the sigmoid colon and in the ascending colon. Biopsied. Recommendations : - Discharge patient to home. - Resume previous diet. - Continue present medications. - Await pathology results. - Repeat colonoscopy for surveillance based on pathology results. My findings are described in the full procedure note, which is enclosed. If I can be of further assistance, please feel free to contact me at . Sincerely, Russ Rebollar, 03/04/2024 3:29:39 PM This report has been signed electronically.
--- NOTE | 2024-03-04 15:30 | PCM.POST.ANE ---
Anesthesia: Postop Eval I Current Vital Signs Temperature: 97.2 F Pulse Rate: 72 Blood Pressure: 106/63 Respiratory Rate: 16 Pulse Ox: 94 Oxygen Delivery Method: Room Air Assessment Airway patent: Yes Spontaneous unlabored respirations: Yes Mental status: Asleep nausea: No Vomiting: No Anesthesia Complication: No Fluid Hydration Crystalloid volume administer (ml): 60 Total IV fluid infused: 60 Progress Note Anesthesia document: Postop Eval 1 completed: Yes
--- NOTE | 2024-03-04 15:34 | PCM.POSTANE2 ---
Anesthesia Postop Eval I Sum Postop Eval Completion status Anesthesia document: Postop Eval 1 completed: Yes Anesthesia Postop Eval I Summary Anesthesia Postop Eval I Summary: Anesthesia Postop Eval I: Assessment Summary Airway patent Yes 03/04/24 15:31 [email or web address] Spontaneous unlabored Yes 03/04/24 15:31 [email or web address] respirations Mental status Asleep 03/04/24 15:31 [email or web address] nausea No 03/04/24 15:31 [email or web address] Vomiting No 03/04/24 15:31 [email or web address] Anesthesia Postop Eval I: Fluid Summary Crystalloid volume administer 60 03/04/24 15:31 [email or web address] (ml) Colloids volume administered ( ml) Blood Product volume administered (ml) Total IV fluid infused 60 03/04/24 15:31 [email or web address] Anesthesia Postop Eval I: Summary Notes Anesthesia Complication No 03/04/24 15:31 [email or web address] Anesthesia Complication Comment: Post-operative progress note Anesthesia: Postop Eval II Evaluation Mental status: Awake Pain Level: 0 nausea: No Vomiting: No
== END 2024-03-04 16:18 | disposition home or self-care (01) ==
LOC: EN 12:46 → AC 12:48
PROVIDERS: PCP Internal Medicine; Referring Provider Internal Medicine; Visit Provider Internal Medicine Gastroenterology
PROC: 0DJD8ZZ Inspection of Lower Intestinal Tract, Via Natural or Artificial Opening Endoscopic (ICD-10-PCS; CPT 45378; principal; 2024-03-04 13:55)
DX: R19.7 Diarrhea, unspecified (principal); K57.30 Diverticulosis of large intestine without perforation or abscess without bleeding; K44.9 Diaphragmatic hernia without obstruction or gangrene; Z90.710 Acquired absence of both cervix and uterus; I10 Essential (primary) hypertension; E78.5 Hyperlipidemia, unspecified; Z80.0 Family history of malignant neoplasm of digestive organs; Z86.0100 Personal history of colon polyps, unspecified; Z79.899 Other long term (current) drug therapy; K21.9 Gastro-esophageal reflux disease without esophagitis; K29.70 Gastritis, unspecified, without bleeding; K22.89 Other specified disease of esophagus; K62.89 Other specified diseases of anus and rectum
CPT/HCPCS: 45380; 43239; 88305; 88342; A4216; J2405

== ENCOUNTER → 2024-03-26 | Outpatient (CLI) | payer MEDICARE, OTHER, SELFPAY ==
--- NOTE | 2024-03-26 15:27 | BD_ITS ---
STUDY: DUAL ENERGY X-RAY ABSORPTIOMETRY / DXA REASON FOR EXAM: Female, 79 years old. Post menopausal TECHNIQUE: Bone Mineral Density (BMD) measurements of lumbar spine and bilateral hips were obtained. COMPARISON: None. FINDINGS: Lumbar Spine (L1-L4): g/cm2 (1.118) / T-score (0.8) / Z-score (3.4) Findings are suggestive of normal bone density with a low fracture risk. Left Femur Total: g/cm2 (0.858) / T-score (-0.7) / Z-score (1.4) Left Femoral Neck: g/cm2 (0.641) / T-score (-1.9) / Z-score (0.5) Right Femur Total: g/cm2 (0.871) / T-score (-0.6) / Z-score (1.5) Right Femoral Neck: g/cm2 (0.665) / T-score (-1.7) / Z-score (0.7) BD/Dexa Bone Density Study IMPRESSION: The patient is considered osteopenic as outlined below according to World Chris Organization (WHO) criteria with a moderate fracture risk. Reference Information: The T-score is the number of standard deviations above or below the standard which is normal for young adults at their peak bone mineral density. The World Health Organization (WHO) interprets the T-scores as follows: Above -1 Normal bone density Between -1 and -2.5 Osteopenia Equal to / or below -2.5 Osteoporosis As a practical clinical guideline, osteopenia may be graded as follows: Mild -1 through -1.5 Moderate -1.6 through -2.0 Severe -2.1 through -2.4 The Z-score is the number of standard deviations above or below age-matched controls. A Z-score of less than -1.5 would be considered abnormal. References: 1. NIH Osteoporosis and Related Bone Diseases www osteo.org 2. International Society for Clinical Densitometry www iscd.org 3. National Osteoporosis Foundation www nof.org Electronically Signed: Jack Rodriguez MD at 11:27 EST ,
== END | disposition home or self-care (01) ==
PROVIDERS: PCP Internal Medicine; Referring Provider Internal Medicine; Visit Provider Internal Medicine
DX: Z78.0 Asymptomatic menopausal state (principal)
CPT/HCPCS: 77080

== ENCOUNTER → 2024-05-09 | Outpatient (CLI) | payer MEDICARE, OTHER, SELFPAY ==
--- NOTE | 2024-05-09 13:00 | BI_ITS ---
PROCEDURE: SCRN MAMM (CAD)W/APOLLO BILAT REASON FOR EXAM: F, Age 79 y/o, presents for annual screening mammogram. Personal history of right breast cancer with lumpectomy in 2019. Family history of breast cancer in her mother at 60, sister at 50 and 2 paternal aunts. TECHNIQUE: Bilateral screening digital breast tomosynthesis with 2D and 3D images. Computer aided detection. COMPARISON: 05/09/2023 FINDINGS: The breasts are heterogeneously dense which may obscure small masses. The mammogram demonstrates that the patient has dense breasts. Supplemental screening with whole breast ultrasound or MRI may be considered for further evaluation. No suspicious masses, areas of developing architectural distortion, or suspicious calcifications. BI/SCRN MAMM (CAD)W/APOLLO BILAT IMPRESSION: There is no mammographic evidence of malignancy. BI-RADS 1: NEGATIVE. RECOMMEND ANNUAL MAMMOGRAPHIC SCREENING. Follow-up code: Routine Follow-up The patient will be notified of the results by letter. Reading Location: [id number]
== END | disposition home or self-care (01) ==
LOC: OPBI 12:37
PROVIDERS: PCP Internal Medicine; Referring Provider Internal Medicine; Visit Provider Internal Medicine
DX: Z12.31 Encounter for screening mammogram for malignant neoplasm of breast (principal); Z85.3 Personal history of malignant neoplasm of breast
CPT/HCPCS: 77063; 77067